=== PATIENT | male | born 1985 | race Caucasian/White ===

== ENCOUNTER 2024-07-27 10:42 | Emergency (ER) | payer MEDICAID, SELFPAY ==
--- NOTE | 2024-07-27 10:44 | EKG_ITS ---
[facility] Test Date: 2024-07-27 Pat Name: RICKY RAITA Department: Room: - Gender: Male Yam Curer: : 1985 Requested By: Shimon Eckert Order Number: [id number] Reading MD: Shimon Eckert Measurements Intervals Sikes Rate: 94 P: 24 AZ: 146 QRS: 74 QRSD: 92 T: 2 QT: 336 QTc: 421 Interpretive Statements SINUS RHYTHM Compared to ECG 02/04/2024 08:05:42 No significant changes /store/S0/[id number].pdf
--- NOTE | 2024-07-27 10:44 | XR_ITS ---
Examination: AP chest single view Technique one AP portable upright chest single view Exam date and time: July 27, 2024 1103 hours Comparison February 10, 2020 INDICATIONS: Onset chest pain today. FINDINGS: Subsegmental atelectasis left base Normal heart size No pneumonia or pulmonary edema IMPRESSION: Subsegmental atelectasis left base
--- NOTE | 2024-07-27 10:44 | XR_ITS ---
Examination: CT brain head without contrast. 2-D sagittal coronal reconstructions Date and time of exam:July 27, 2024 1129 hours INDICATIONS: Loss of consciousness episode today COMPARISON: November 06, 2021 CTDI: vol (mGy):52 DLP: (mGycm):1031 Technique: Multiple CT axial sections of the brain have been obtained, 5 mm slice thickness. Contrast has not been administered. 2-D sagittal, coronal reconstructions have been obtained Low dose protocols were performed. One or more of the following dose reduction techniques were used; automated exposure control, adjustment of the mA and/or KV according to patient size, use of iterative reconstruction technique. Findings: No significant ventricular enlargement. Intra-axial or extra-axial hemorrhage density is not seen. No mass effect or midline shift Basal cisterns are not remarkable. Fourth ventricle is midline. Cranial vault intact. Impression: Negative for acute hemorrhage, mass effect or midline shift
[2024-07-27 10:46] VITALS: PULSE 129; RESP 24; TEMP 36.8; O2SAT 96
--- NOTE | 2024-07-27 11:01 | EDNOTE_ITS ---
ED Overdose RME/HPI General Chief Complaint: Overdose Stated Complaint: OVERDOSE Time Seen by Provider: 07/27/24 10:43 Arrival date/time: 07/27/24 10:42 RME / HPI RME / HPI Narrative: 38 year old male with history of hypertension, hyperlipidemia, polysubstance use presents to the ED brought in by [facility] for overdose today. Per officer, patient was with another individual who also overdosed, requiring CPR and Narcan. Per [employer] officers, patient did not require any CPR and refused any Narcan. State he is unsteady on his feet otherwise awake, alert, answering all questions. While in the ED patient has no complaints. Admits to smoking Fentanyl and Methamphetamine. Related Data Home Medications ?Medication ?Instructions ?Recorded ?Confirmed amlodipine 5 mg tablet 5 mg PO QDAY 02/04/24 02/08/24 atorvastatin 10 mg tablet (Lipitor) 10 mg PO QDAY 02/04/24 02/08/24 losartan 50 mg tablet 50 mg PO QDAY 02/04/24 02/08/24 Previous Rx's ?Medication ?Instructions ?Recorded docusate sodium 100 mg capsule 100 mg PO BID #40 caps 02/08/24 (Colace) ibuprofen 600 mg tablet 600 mg PO Q8H PRN pain (scale 02/08/24 score 4-6) #30 tabs Allergies Allergy/AdvReac Type Severity Reaction Status Date / Time No Known Allergies Allergy Verified 02/08/24 06:38 Review of Systems Review of Systems Narrative Review of Systems: Constitutional: DENIES; Fevers Eyes: DENIES; Loss of vision Head/Ear/Nose: DENIES; Loss of hearing Throat: DENIES; Dysphagia Cardiovascular: DENIES; Chest pain, dyspnea or syncope Respiratory: DENIES; Shortness of breath Gastrointestinal: DENIES; Rectal bleeding or melena. Genitourinary: DENIES; Dysuria (painful or difficult urination) Musculoskeletal: DENIES; Arthralgia (pain in a joint),; Skin: DENIES; Rash Neurological: DENIES; Loss of function or movement Psychiatric: SEE HPI +overdose DENIES; recent major life stressor, emotional problem Endocrinology: DENIES; Weight change Hematologic/Lymphatic: DENIES; Abnormal bruising Allergic/Immunologic: DENIES; Urticaria (hives) Past Medical History Past Medical History CARDIAC: Positive Cardiac Disorders, Hypercholesterolemia, Hypertension and Varicose Veins GENITOURINARY: Positive Genitourinary Disorders and Inguinal Hernia MUSCULOSKELETAL: Positive Musculoskeletal Disorders and Fractures (Left arm 5 yrs ago) PSYCHO/SOCIAL: Positive Recreational Drug Use (fentanyl, cocaine, heroin 54 days clean) and Anxiety OTHER HISTORY: Positive Chicken Pox Family History FAMILY HISTORY: Positive Family Cardiac Disorders, Family Cancer (skin) and Family Surgery Social History SMOKING STATUS: Current every day smoker ED Exam Narrative Physical exam: Physical Exam: General: The vital signs were reviewed. Patient was escorted in by police with handcuffs and somewhat wobbly but alert enough to answer questions follow directions evidently was just smoking fentanyl. He also identified the patient in room 2 who came and overdose requiring respiratory assistance Patient was released by the police Patient initially was uncooperative did not want to stay but then agreed to stay and get the medical workup. The patient is non-toxic, in no apparent distress and appears healthy with a patent airway, no respiratory distress and has no apparent circulatory problems. Head & Scalp: Normocephalic, atraumatic. Face: Appears normal and is without lesions, deformity. Ears: Left external pinna appears normal. Right external pinna appears normal. Eyes: The sclera is anicteric. No obvious photophobia. The Left and Right Orbit/Lid/Conjunctiva appears normal without swelling, discoloration or injection. Nose: The nose is without deformity, discharge or tenderness; Throat: Appears normal. The mucous membranes are pink and moist without exudates, redness or mass seen. The tongue appears normal. Neck: The neck is supple and no apparent mass or adenopathy. Chest: The chest wall is normal in size and symmetry and has no chest wall tenderness or crepitus. The patient displays normal ventilator effort without retractions, accessory muscle use and has adequate air movement bilaterally with no wheezes and no rales. Cardiovascular: Regular rate and rhythm; No murmurs, rubs, or gallops; Gastrointestinal: The abdomen appears normal. No obvious hernias or mass. The abdomen is soft and benign, non-distended, with no pain, no guarding and no rebound tenderness. Bowel sounds are present and normal sounding. No CVA tenderness. Genitourinary: Back/Spine: Extremities/Musculoskeletal/lymphatic: The bilateral upper and lower extremities are warm. There is no evidence of arterial insufficiency. There is no evidence of venous insufficiency/edema. The patient spontaneously moves bilateral upper and lower extremities with no pain and no limitation of movement. There is no apparent, injury or trauma. Skin: The skin is warm, dry and intact. No rashes. No petechia. No purpura. No abnormal bruising. The color is appropriate with no cyanosis. Mental status/Psychiatric: Mental status is appropriate for age. The patient has no apparent delusions, visual hallucinations, no apparent audible hallucinations. The patient has no apparent suicidal thoughts/ideation and no apparent homicidal thoughts/ideation. Neurological: The patient is awake, alert, interactive, cordial, cooperative and is oriented to name and situation. The patient follows commands and answers historical question with no impairment. There is no visual disturbance apparent. The pupils are equal and reactive bilaterally with normal eye movements and no diplopia The bilateral upper and lower extremities have normal strength, normal range of motion and normal functioning. The gait, station and balance appear to be baseline with no acute change Course Quality Measures none Orders Category Date Time Status Bedside Blood Glucose NOW Care 07/27/24 10:44 Completed EKG (ED ONLY) *Do not use* NOW Care 07/27/24 10:44 Completed Miscellaneous Nursing Order NOW Care 07/27/24 10:[address] head/brain wo con Stat Exams 07/27/24 10:44 Completed EKG (ED Only) Stat Exams 07/27/24 10:44 Ordered XR chest 1V portable Stat Exams 07/27/24 10:44 Completed Alcohol, Blood Medical Stat Lab 07/27/24 11:27 Completed Ammonia Stat Lab 07/27/24 11:27 Completed B-Type Natriuretic Peptide Stat Lab 07/27/24 11:27 Completed Blood Culture (Lab) Stat Lab 07/27/24 11:20 Received CBC Stat Lab 07/27/24 11:27 Completed Comprehensive Metabolic Panel Stat Lab 07/27/24 11:27 Completed Drug Screen,Urine Stat Lab 07/27/24 12:52 Completed Lactate (Lactic Acid) Stat Lab 07/27/24 11:27 Completed Procalcitonin Stat Lab 07/27/24 11:27 Completed Prothrombin Time with INR Stat Lab 07/27/24 11:27 Completed Troponin I Stat Lab 07/27/24 11:27 Completed Type and Screen Stat Lab 07/27/24 12:29 Completed Urinalysis Stat Lab 07/27/24 12:52 Completed Urinalysis, C/S if Indicated Stat Lab 07/27/24 12:52 Completed Venous Blood Gas Stat Lab 07/27/24 11:27 Completed Sodium Chloride 0.9% 1000 ml [Ns] 1,000 ml Med 07/27/24 10:44 Discontinued IV 1,000 mls/hr Sodium Chloride 0.9% 1000 ml [Ns] 2,000 ml Med 07/27/24 10:44 Discontinued IV 150 mls/hr Vital Signs Vital signs: Vital Signs Temperature 98.3 F 07/27/24 10:46 Pulse Rate 129 H 07/27/24 10:46 Respiratory Rate 24 H 07/27/24 10:46 Pulse Oximetry (%) 96 07/27/24 10:46 Oxygen Delivery Method Room Air 07/27/24 10:46 Pulse ox is 96% on room air which is adequate. Overdose MDM Narrative MDM Narrative:: Patient comes in smoking fentanyl and was under the influence wobbly and barely able to walk with the assistance of the officer but was put into room 18 eventually and stayed alert awake and became much more cooperative after about 3040 minutes. Medical workup was fairly extensive including CT of the head which was negative chest x-ray reveals some minimal atelectasis in the left base otherwise is clear with no effusion no consolidating pneumonia normal heart. Alcohol level is negative his talk screen is positive for marijuana amphetamine and fentanyl. Urinalysis otherwise had some minimal red blood cells in it. Specific gravity is somewhat concentrated at 1027. A CMP was done which was essentially negative. Venous blood gas came back a pH is 7.38 PT/INR were normal. CBC had a white count of 9.9 hemoglobin of 15.6. Patient was observed had normal mental status changes for the last couple hours. Evidently him and his girlfriend who was in respiratory arrest and responded to Narcan or finding to did be discharged from the ER and go to the some rehab in [place] that they have arranged with her counselors. Patient data External records reviewed:: [facility] previous records (I reviewed ED visit on 11/06/2021) Clinical information provided by:: patient and law enforcement ([employer] ) Social determinants that could affect healthcare access:: substance use (Fentanyl, Methamphetamine, Marijuana ) Patient has the following chronic illnesses:: hypertension, hyperlipidemia, polysubstance use How is presenting disease/condition affected by chronic disease/condition?: exacerbated by Evaluation data The following diagnostics were reviewed and interpreted by me:: lab results, radiology exam(s) and EKG tracing(s) (Sinus rhythm, rate 94, no STEMI. ) Lab and/or radiology exams considered but not ordered:: None Interpretation Summary: Ordering Physician: Shimon Eckert MD Date of Service: 07/27/24 Procedure(s): XR chest 1V portable Accession Number(s): [id number] cc: Shimon Eckert MD; Nader Berry MD; MANNY JASON~ Examination: AP chest single view Technique one AP portable upright chest single view Exam date and time: July 27, 2024 1103 hours Comparison February 10, 2020 INDICATIONS: Onset chest pain today. FINDINGS: Subsegmental atelectasis left base Normal heart size No pneumonia or pulmonary edema IMPRESSION: Subsegmental atelectasis left base Dictated By: Nader Berry MD Signed By: <Electronically signed by Nader Berry MD in OV> 07/27/24 1137 ===== Ordering Physician: Shimon Eckert MD Date of Service: 07/27/24 Procedure(s): CT head/brain wo con Accession Number(s): [id number] cc: Shimon Eckert MD; Nader Berry MD; MANNY JASON~ Examination: CT brain head without contrast. 2-D sagittal coronal reconstructions Date and time of exam:July 27, 2024 1129 hours INDICATIONS: Loss of consciousness episode today COMPARISON: November 06, 2021 CTDI: vol (mGy):52 DLP: (mGycm):1031 Technique: Multiple CT axial sections of the brain have been obtained, 5 mm slice thickness. Contrast has not been administered. 2-D sagittal, coronal reconstructions have been obtained Low dose protocols were performed. One or more of the following dose reduction techniques were used; automated exposure control, adjustment of the mA and/or KV according to patient size, use of iterative reconstruction technique. Findings: No significant ventricular enlargement. Intra-axial or extra-axial hemorrhage density is not seen. No mass effect or midline shift Basal cisterns are not remarkable. Fourth ventricle is midline. Cranial vault intact. Impression: Negative for acute hemorrhage, mass effect or midline shift Dictated By: Nader Berry MD Signed By: <Electronically signed by Nader Berry MD in OV> 07/27/24 1147 Medications / Prescriptions Medications or Prescriptions considered but not ordered:: None Medication administrations:: Medication Administration History Discontinued Medications Sodium Chloride (Ns) 2,000 mls @ 150 mls/hr IV .[id number] ONE Stop: 07/28/24 00:03 Last Admin: 07/27/24 11:41 Dose: 150 mls/hr Documented By: SARBJIT Sodium Chloride (Ns) 1,000 mls @ 1,000 mls/hr IV .Q1H ONE Stop: 07/27/24 11:43 Last Infusion: 07/27/24 12:39 Dose: Infused Documented By: Admin: 07/27/24 11:39 Dose: 1,000 mls/hr Documented By: SARBJIT See above Consultations Consultation(s) initiated? (list below): No Diagnosis Overdose Differential Diagnosis: cocaine intoxication, drug overdose and other (Methamphetamine use, fentanyl overdose ) Most likely diagnosis given after review of the tests above:: Opioid overdose Admission Indicated Admission indicated?: not indicated Admission Request Was there a request for admission?: No Disposition Plan Disposition Plan: Discharge Discharge Attestation Discharge Attestation: The patient and all family members were given an opportunity to ask questions and understood the discharge instructions. Discharge instructions specifically effects, indications for sooner follow up or return to the emergency department, and the expected course of current diagnosis. Patient condition: Stable Discharge Plan Plan Patient Disposition: HOME (Self Care) Prescriptions/Referrals Prescriptions/Med Rec: No Action losartan 50 mg Tablet 50 mg PO QDAY atorvastatin [Lipitor] 10 mg Tablet 10 mg PO QDAY amlodipine 5 mg Tablet 5 mg PO QDAY docusate sodium [Colace] 100 mg capsule 100 mg PO BID Qty: 40 0RF ibuprofen 600 mg tablet 600 mg PO Q8H PRN (Reason: pain (scale score 4-6)) Qty: 30 0RF Referrals: Manny Jason PA-C [Primary Care Provider] - In 1 week Problem List Clinical Impression: Opioid overdose Patient/Caregiver Discharge Instructions Additional Instructions: Please stop using drugs as we discussed get help as you are planning. Return if worse in any way. I want to encourage you with your rehab. Also there are programs like [facility] available in the town if you need. Print Language: Hungarian Stand Alone Forms: Patient Portal Info Letter
[2024-07-27 11:38] LABS: Base Excess, Venous -1 (-3-3); Basophils % (Auto) 0 % (0-2.5); Eosinophils % (Auto) 0 % (0-10); Hematocrit 43.9 % (41.0-53.0); Hemoglobin 15.6 g/dL (13.5-16.0); Immature Granulocytes % (Auto) 0 % (0-0); Immature Granulocytes Auto 0.03 Thou/mm3 (0.00-0.00); Lymphocytes # (Auto) 1.5 Thou/mm3 (1.0-4.8); Lymphocytes % (Auto) 15 % (10-50); Mean Corpuscular HGB Conc 35.5 g/dl (31.0-37.0); Mean Corpuscular Hemoglobin 29.6 pg (25.0-35.0); Mean Corpuscular Volume 83 fL (80-100); Monocytes # (Auto) 0.6 Thou/mm3 (0.0-0.8); Monocytes % (Auto) 6 % (0-12); Neutrophils # (Auto) 7.7 Thou/mm3 (1.8-7.7); Neutrophils % (Auto) 78 % (37-80); Nucleated Red Blood Cell % 0 /100 WBC (0); O2 Saturation, Venous 97 % (96-97); PCO2, Venous 41 mmHg (36-56); PO2, Venous 86 mmHg (15-58); Platelet Count 271 Thou/mm3 (140-440); RDW Standard Deviation 38.9 fL (35.1-43.9); Red Blood Count 5.27 Miln/mm3 (4.50-5.90); White Blood Count 9.9 Thou/mm3 (3.8-10.6); pH, Venous 7.38 (7.33-7.66)
[2024-07-27 11:39] LABS: Lactate (Lactic Acid) 0.9 mMol/L (0.4-2.0)
[2024-07-27] MEDS: SODIUM CHLORIDE 0.9% 1000 ML 1,000 ML IV (11:39)
[2024-07-27] MEDS: SODIUM CHLORIDE 0.9% 1000 ML 2,000 ML 150 ML IV (11:41)
[2024-07-27 11:42] VITALS: BP 121/92; PULSE 105; RESP 18; TEMP 37; O2SAT 95; BMI 29.9
[2024-07-27 11:56] LABS: Prothrombin Time 11.2 Seconds (9.0-12.2)
[2024-07-27 12:02] LABS: B-Type Natriuretic Peptide < 20 pg/mL (0-100)
[2024-07-27 12:07] LABS: Ammonia < 10 uMol/L (11-32)
[2024-07-27 12:14] LABS: Alanine Aminotransferase 9 U/L (10-49); Albumin, Serum 4.8 gm/dL (3.5-5.0); Albumin/Globulin Ratio 1.5 (1.2-2.2); Alcohol, Blood Medical < 3.0 mg/dL (0-10.0); Alkaline Phosphatase 63 U/L (46-116); Anion Gap 10 (7-16); Aspartate Amino Transferase 10 U/L (0-34); BUN/Creatinine Ratio 16 Ratio (12-20); Bilirubin,Total 0.5 mg/dL (0.3-1.2); Blood Urea Nitrogen 19 mg/dL (9-23); Carbon Dioxide 22.7 mMol/L (20.0-31.0); Chloride 103 mMol/L (98-107); Creatinine (Component) 1.2 mg/dL (0.6-1.3); Estimated Creatinine Clearance 83.7 mL/min (>60); Globulin 3.1 gm/dL (2.3-3.5); Glucose 111 mg/dL (74-106); Osmolality,Calculated 275 (275-295); Potassium 3.9 mMol/L (3.4-5.1); Sodium 136 mMol/L (136-145); Total Protein 7.9 gm/dL (5.7-8.2); Troponin I < 0.002 ng/mL (0.0-0.045); eGFR > 60 See Note
[2024-07-27 12:38] VITALS: BP 127/84; PULSE 108; RESP 18; TEMP 36.7; O2SAT 97
[2024-07-27 13:00] LABS: Collection Type, Urine Clean Catch
[2024-07-27 13:10] LABS: Bilirubin,Urine Negative (Negative); Blood,Urine 1+ (Negative); Clarity,Urine Clear (Clear/Hazy); Color,Urine Lt-Yellow (Lt Yel-Yel); Culture Indicated,Urine Not Indicated; Glucose, Urine Negative (Negative); Hyaline Casts,Urine < 1 /hpf (0-1); Ketones,Urine Negative (Negative); Leukocyte Esterase,Urine Negative (Negative); Nitrite,Urine Negative (Negative); Protein,Urine 1+ (Neg - Trace); RBC,Urine 10 /hpf (0-3); Specific Gravity,Urine 1.027 (1.001-1.035); Squamous Epithelial Cell,Urine < 1 /hpf (0-5); Urobilinogen,Urine Negative mg/dL (0.0-1.0); WBC,Urine 2 /hpf (0-5)
[2024-07-27 13:14] LABS: Amphetamine/Methamp Scrn,U Positive (Negative); Barbiturate Screen,Urine Negative (Negative); Benzodiazepines Screen,Urine Negative (Negative); Benzoylecgonine Screen, Ur Negative (Negative); Opiate Screen,Urine Negative (Negative); THC Screen,Urine Positive (Negative)
[2024-07-27 14:39] LABS: Fentanyl Screen,Urine Positive (Negative)
--- NOTE | 2024-07-27 15:40 | PC.NURSE ---
PT DENIES BEING SUICIDAL. PT STATES IT Was an accidental overdose as he thought he was smoking meth. pt alert and oriented gcs 15
== END 2024-07-27 16:41 | disposition home or self-care (01) ==
PROVIDERS: Emergency Provider Emergency Medicine; PCP Physician Assistant
DX: T40.2X1A Poisoning by other opioids, accidental (unintentional), initial encounter (principal); J98.11 Atelectasis; I10 Essential (primary) hypertension; F17.200 Nicotine dependence, unspecified, uncomplicated
CPT/HCPCS: 36415; 70450; 71045; 80053; 80307; 80320; 81001; 82140; 82803; 83605; 83880; 84145; 84484; 85025; 85610; 86850; 86900; 86901; 87040; 93005; 96360; 99284; J7030; G0480

== ENCOUNTER 2025-03-06 13:40 | Inpatient (IN) | payer MEDICAID, SELFPAY ==
[2025-03-06 13:41] VITALS: BMI 28.5
[2025-03-06 13:56] VITALS: BP 155/96; PULSE 99; RESP 18; TEMP 37.4; O2SAT 97
--- NOTE | 2025-03-06 13:56 | XR_ITS ---
Examination: Humerus 2 views left Technique: Humerus, AP lateral 2 views Date and time of exam: 01/04/2025 1407 hours INDICATIONS: Puncture injury to the arm yesterday, arm pain. FINDINGS: No fracture. No shoulder dislocation. No opaque foreign body. IMPRESSION: No opaque foreign body
--- NOTE | 2025-03-06 13:56 | XR_ITS ---
Examination: Duplex scan of the upper extremity, unilateral left Date and time of exam: March 06, 2025 1412 hours INDICATIONS: Left arm swelling and pain post needle injury 2 days ago Technique: Duplex scan of the extremity veins using B-mode/grayscale imaging and Doppler spectral analysis and color flow Attention is directed to internal echogenicity, compression and augmentation involving these veins, color flow assessment, spectral analysis Findings: Major deep venous structures in the extremity demonstrate normal course and caliber. There is no evidence of deep vein thrombosis. Normal color flow and spectral analysis Impression: Negative for DVT.. Partially cystic complex mass in the soft tissue left upper arm, 7.2 x 3.2 x 3.4 cm, consider abscess
--- NOTE | 2025-03-06 13:56 | XR_ITS ---
Examination: Left elbow 3 views Technique: Elbow AP, oblique, lateral 3 views Exam date and time: March 06, 2025 1402 hours INDICATIONS: Puncture injury to the elbow yesterday, elbow pain. FINDINGS: Air in the soft tissue adjacent to the distal humerus on the medial side No fracture No opaque foreign body IMPRESSION: No opaque foreign bodies.
--- NOTE | 2025-03-06 13:57 | EDRME_ITS ---
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
[2025-03-06 14:57] LABS: Lactate (Lactic Acid) 0.9 mMol/L (0.4-2.0)
[2025-03-06 15:08] LABS: Basophils # (Auto) 0.0 Thou/mm3 (0.0-0.2); Basophils % (Auto) 0 % (0-2.5); Eosinophils # (Auto) 0.1 Thou/mm3 (0.0-0.5); Eosinophils % (Auto) 1 % (0-10); Hematocrit 41.0 % (41.0-53.0); Hemoglobin 14.2 g/dL (13.5-16.0); Immature Granulocytes Auto 0.08 Thou/mm3 (0.00-0.00); Lymphocytes # (Auto) 1.7 Thou/mm3 (1.0-4.8); Lymphocytes % (Auto) 10 % (10-50); Mean Corpuscular HGB Conc 34.6 g/dl (31.0-37.0); Mean Corpuscular Hemoglobin 30.3 pg (25.0-35.0); Mean Corpuscular Volume 87 fL (80-100); Monocytes # (Auto) 1.5 Thou/mm3 (0.0-0.8); Monocytes % (Auto) 9 % (0-12); Neutrophils # (Auto) 13.3 Thou/mm3 (1.8-7.7); Neutrophils % (Auto) 80 % (37-80); Nucleated Red Blood Cell # 0.00 Thou/mm3 (0.00-0.00); Nucleated Red Blood Cell % 0 /100 WBC (0); Platelet Count 387 Thou/mm3 (140-440); RDW Standard Deviation 40.9 fL (35.1-43.9); Red Blood Count 4.69 Miln/mm3 (4.50-5.90); White Blood Count 16.7 Thou/mm3 (3.8-10.6)
[2025-03-06 15:17] LABS: INR 1.1 (0.9-1.3); Partial Thromboplastin Time 35.5 Seconds (22.0-36.0); Prothrombin Time 11.9 Seconds (9.0-12.2)
[2025-03-06 15:27] LABS: Alanine Aminotransferase 105 U/L (10-49); Albumin, Serum 4.0 gm/dL (3.5-5.0); Albumin/Globulin Ratio 1.3 (1.2-2.2); Alkaline Phosphatase 109 U/L (46-116); Anion Gap 8 (7-16); Aspartate Amino Transferase 62 U/L (0-34); BUN/Creatinine Ratio 7 Ratio (12-20); Bilirubin,Total 1.5 mg/dL (0.3-1.2); Blood Urea Nitrogen 6 mg/dL (9-23); Calcium 8.9 mg/dL (8.3-10.6); Calcium (Corrected) 8.9 mg/dL (8.5-10.1); Carbon Dioxide 28.2 mMol/L (20.0-31.0); Chloride 95 mMol/L (98-107); Creatinine (Component) 0.9 mg/dL (0.6-1.3); Estimated Creatinine Clearance 104.3 mL/min (>60); Globulin 3.2 gm/dL (2.3-3.5); Glucose 96 mg/dL (74-106); Osmolality,Calculated 260 (275-295); Potassium 4.3 mMol/L (3.4-5.1); Procalcitonin 0.26 ng/ml (0.0-0.49); Sodium 131 mMol/L (136-145); Total Protein 7.2 gm/dL (5.7-8.2); eGFR > 60 See Note
[2025-03-06 15:33] LABS: C-Reactive Protein 18.5 mg/dL (0.0-0.9)
[2025-03-06 15:48] LABS: Sed Rate (ESR) 43 mm/hr (0-15)
[2025-03-06 19:25] LABS: Amphetamine/Methamp Scrn,U Positive (Negative); Barbiturate Screen,Urine Negative (Negative); Benzodiazepines Screen,Urine Negative (Negative); Benzoylecgonine Screen, Ur Negative (Negative); Fentanyl Screen,Urine Positive (Negative); Opiate Screen,Urine Positive (Negative); THC Screen,Urine Positive (Negative)
[2025-03-06 19:36] VITALS: BP 151/94; PULSE 95; RESP 16; TEMP 37.2; O2SAT 99
--- NOTE | 2025-03-06 19:43 | XR_ITS ---
Examination: CT left humerus with intravenous contrast, 2-D sagittal reconstructions. 2-D coronal reconstructions. 3-D reconstructions. Date and time of exam:March 06, 2025 at 2033 hours INDICATIONS: Drug abuse history with edema and erythema involving the arm CTDI: vol (mGy):19.9 DLP: (mGycm):1012 Technique: Multiple 1.25 mm axial sections of the left humerus post intravenous administration 60 cc Isovue 370 have been obtained. 2-D sagittal and coronal reconstructions have been obtained. 3-D reconstructions have been obtained. Low dose protocols were performed. One or more of the following dose reduction techniques were used; automated exposure control, adjustment of the mA and/or KV according to patient size, use of iterative reconstruction technique. Findings: Low density mass consistent with abscess in the deltoid muscle, 3.1 x 2.2 x 8.4 cm Negative for osteomyelitis Diffuse edema surrounding the upper arm and forearm No opaque foreign body IMPRESSION: Abscess in the deltoid muscle, 3.1 x 2.2 x 8.4 cm, recommend surgical consultation
--- NOTE | 2025-03-06 19:45 | PD.EDUPEX ---
Upper Extremity Injury RME/HPI General Chief Complaint: Extremity Injury, Upper Stated Complaint: L) ARM SWOLLEN FROM POKE W/ SYRINGE Time Seen by Provider: 03/06/25 16:33 Arrival date/time: 03/06/25 13:40 Limitations: no limitations RME / HPI RME / HPI narrative: 39-year-old male with a history of polysubstance abuse is here today with left arm swelling and pain for the last 2 to 3 days. He states he injected heroin or fentanyl into his upper arm. Since then he has had redness, swelling, and pain. Denies any chest pain or shortness of breath. No fevers or chills. No abdominal pain, nausea, vomiting. He has no distal paresthesias. He states he has been using heroin, fentanyl, and methamphetamine. States that he has a period of sobriety but relapsed recently. Denies any alcohol abuse. Denies any drug allergies. He states he has a history of hypertension but takes no medication for this currently. He states he has no current PCP. He has no other acute complaints or concerns. Related Data Home Medications ?Medication ?Instructions ?Recorded ?Confirmed amlodipine 5 mg tablet 5 mg PO QDAY 02/04/24 03/15/25 losartan 50 mg tablet 50 mg PO QDAY 02/04/24 03/15/25 methadone 10 mg/mL oral concentrate 60 mg PO QDAY 03/07/25 03/15/25 Previous Rx's ?Medication ?Instructions ?Recorded nicotine 21 mg/24 hr daily 21 mg topical QDAY 28 days #28 ea 03/09/25 transdermal patch Allergies Allergy/AdvReac Type Severity Reaction Status Date / Time No Known Allergies Allergy Verified 03/15/25 10:21 Review of Systems Review of Systems Systems Reviewed: All systems reviewed, normal except as documented ED Exam General Limitations: Present no limitations General appearance: Present alert and in no apparent distress Head Head exam: Present atraumatic Eye Eye exam: Present normal appearance, PERRL and EOMI ENT ENT exam: Present normal exam, normal oropharynx and mucous membranes moist Neck Neck exam: Present normal inspection, full ROM and trachea midline Chest Chest inspection: Present normal inspection and symmetric chest wall rise Respiratory Respiratory exam: Present normal lung sounds bilaterally Cardiovascular Cardiovascular exam: Present regular rate, normal rhythm and normal heart sounds Abdominal Exam Abdominal exam: Present soft and normal bowel sounds Extremities Exam Extremities exam: Present normal inspection, full ROM and other ( Patient has full range of motion of the left elbow including pronation supination.) Back Exam Back exam: Present normal inspection and full ROM Neurological Exam Neurological exam: Present alert and oriented X3 Skin Skin exam: Present warm, dry, normal color and other (There is induration, warmth, entire the entire left deltoid, this extends to the superior portion of the shoulder and down to the forearm. ) Course Course Course Narrative: Dr Contreras with orthopedics was paged at [phone]. Spoke with the resident hospitalist at 22:35 PM. Discussed possible admission. They are wanting orthopedics consultation involvement prior to excepting the patient. Dr Contreras was paged at 22:[address] Contreras with orthopedics was contacted and will come down to the ER and evaluate the patient. Dr Contreras with orthopedics arrived in the emergency room, had a [id number] evaluation with the patient. He recommends transfer to a larger facility with higher level care for further intervention. Will provided dose of Zosyn additionally here. Case signed out to Dr. Cunningham at shift change. Quality Measures none Orders Category Date Time Status CT Screening NOW Care 03/06/25 19:44 Completed Consent [Obtain Written Consent For:] .ONCE Care 03/07/25 10:[address] humerus LT w con Stat Exams 03/06/25 19:43 Completed US venous doppler UE LT Stat Exams 03/06/25 13:56 Completed XR elbow comp LT min 3V Stat Exams 03/06/25 13:56 Completed XR humerus LT MIN 2V Stat Exams 03/06/25 13:56 Completed Blood Culture (Lab) Stat Lab 03/06/25 14:47 Completed CBC Stat Lab 03/06/25 14:47 Completed CMP [Comprehensive Metabolic Panel] Stat Lab 03/06/25 14:47 Completed CRP [C-Reactive Protein] Stat Lab 03/06/25 14:47 Completed Drug Screen,Urine Stat Lab 03/06/25 18:45 Completed ESR [Sed Rate (ESR)] Stat Lab 03/06/25 14:47 Completed Lactic Acid [Lactate (Lactic Acid)] Stat Lab 03/06/25 14:47 Completed PT [Prothrombin Time with INR] Stat Lab 03/06/25 14:47 Completed PTT [Partial Thromboplastin Time] Stat Lab 03/06/25 14:47 Completed Procalcitonin Stat Lab 03/06/25 14:47 Completed Wound Culture and Gram Stain Stat Lab 03/06/25 21:39 Stop Req Acetaminophen Tab [Tylenol Tab] Med 03/07/25 04:15 Discontinued 650 mg PO X1 ONE Doxycycline Inj [Vibramycin Inj] 100 mg Med 03/06/25 19:43 Discontinued Sodium Chloride 0.9% (Pop) [NS 0.9% mini bag] 100 ml IV X1 HYDROmorphone INJ [Dilaudid Inj] Med 03/06/25 23:07 Discontinued 1 mg IVP X1 ONE HYDROmorphone INJ [Dilaudid Inj] Med 03/07/25 04:03 Discontinued 1 mg IVP X1 ONE Ketorolac Inj [Toradol Inj] Med 03/07/25 10:14 Discontinued 15 mg IVP Q6H PRN Lidocaine 1% Pf 30 ml [Xylocaine 1% Pf 30 ml] Med 03/06/25 21:38 Discontinued 30 ml INFL X1 ONE Morphine Inj Med 03/06/25 20:18 Discontinued 4 mg IVP X1 ONE Morphine Inj Med 03/06/25 21:38 Discontinued 4 mg IVP X1 ONE Piper/Tazo 3.375 gm Premix [Zosyn] Med 03/07/25 04:28 Discontinued 3.375 gm in 50 ml IV X1 Piper/Tazo Inj [Zosyn Inj] 4.5 gm Med 03/06/25 22:58 Discontinued Sodium Chloride 0.9% (Pop) [NS 0.9% mini bag] 100 ml IV X1 Sodium Chloride 0.9% 1000 ml [Ns] 1,000 ml Med 03/06/25 20:50 Discontinued IV 999 mls/hr TET,DIP/PERT AC (Adult)-Tdap [Boostrix Adult (Tdap) Med 03/06/25 19:43 Discontinued Vacc] 0.5 ml IMI .ONCE ONE Vancomycin Inj 1,000 mg Med 03/07/25 04:50 Discontinued Sodium Chloride 0.9% 250 ml [Ns] 250 ml IV X1 Vital Signs Vital signs: Vital Signs Temperature 99.4 F 03/06/25 13:56 Pulse Rate 99 03/06/25 13:56 Respiratory Rate 18 03/06/25 13:56 Blood Pressure 155/96 H 03/06/25 13:56 Pulse Oximetry (%) 97 03/06/25 13:56 Oxygen Delivery Method Room Air 03/06/25 13:56 Extremity Injury MDM Narrative MDM Narrative:: 39-year-old male with a history of polysubstance abuse is here today with left arm swelling and pain for the last 2 to 3 days. He states he injected heroin or fentanyl into his upper arm. Since then he has had redness, swelling, and pain. Denies any chest pain or shortness of breath. No fevers or chills. No abdominal pain, nausea, vomiting. He has no distal paresthesias. He states he has been using heroin, fentanyl, and methamphetamine. States that he has a period of sobriety but relapsed recently. Denies any alcohol abuse. Denies any drug allergies. He states he has a history of hypertension but takes no medication for this currently. He states he has no current PCP. He has no other acute complaints or concerns. On exam, patient is nontoxic appearing but he is ill-appearing. Vital signs are stable. He has +2 left radial pulses. He has full range of motion of the left arm. Patient has full range of motion of the elbow including pronation supination. Patient has a leukocytosis of 16.7 thousand, hemoglobin hematocrit are unremarkable. ESR is 43, sodium is 131, creatinine 0.9, T. bili is 1.5, AST is 62, ALT is 105, CRP is 18.5, urine drug screen is positive for opiates, fentanyl, and amphetamines. Marijuana is also positive. Advanced imaging was obtained including CT of the upper arm which reveals abscess, see CT report for further info. Patient received a dose of doxycycline, 100 mg IV here in addition to Zosyn. He was given a 1L bolus of normal saline for his hyponatremia although he remained normotensive and not tachycardic. Patient had no fever throughout the ER course. Case discussed with Dr. Schrader, orthopedic surgeon who believes patient needs be transferred for another facility for higher level care. He did see the patient in the ER. Transfer was requested. Case discussed with nightshift attending ER physician, Dr Cunningham who will be available to assist with the transfer or any interventions as needed.. Patient data External records reviewed:: None Clinical information provided by:: patient and spouse Social determinants that could affect healthcare access:: substance use Patient has the following chronic illnesses:: Polysubstance abuse How is presenting disease/condition affected by chronic disease/condition?: exacerbated by Evaluation data The following diagnostics were reviewed and interpreted by me:: lab results (Leukocytosis, elevated liver function test elevated inflammatory markers) and radiology exam(s) (CT of the left upper arm reveals left deltoid abscess CT) Lab and/or radiology exams considered but not ordered:: n/a Interpretation Summary: Polysubstance abuse, abscess left arm Medications / Prescriptions Medications or Prescriptions considered but not ordered:: n/a Medication administrations:: Medication Administration History Discontinued Medications Acetaminophen (Acetaminophen 325 Mg Tablet) 650 mg PO X1 ONE Stop: 03/07/25 04:16 Last Admin: 03/07/25 04:58 Dose: 650 mg Documented By: LUIGI Acetaminophen (Acetaminophen 325 Mg Tablet) 650 mg PO Q6H PRN PRN Reason: PAIN 1-3 OR FEVER > 101 Stop: 04/06/25 13:53 Hydrocodone Bitart/Acetaminophen (Hydrocodone/Apap 7.5/325 Tablet) 1 tab PO Q6HR PRN PRN Reason: PAIN SCALE 4-6 (Moderate Stop: 03/12/25 11:06 Last Admin: 03/09/25 00:16 Dose: 1 tab Documented By: Admin: 03/08/25 14:47 Dose: 1 tab Documented By: Admin: 03/08/25 00:10 Dose: 1 tab Documented By: NATALIE Amlodipine Besylate (Amlodipine Besylate 5 Mg Tablet) 5 mg PO QDAY THIERRY Stop: 04/07/25 08:59 Last Admin: 03/09/25 08:36 Dose: 5 mg Documented By: Admin: 03/08/25 09:11 Dose: 5 mg Documented By: KLARISSA Diazepam (Diazepam Inj 5 Mg/Ml Vial 2 Ml) 1 mg IVP Q4HR PRN PRN Reason: CIWA 2-7 Diazepam (Diazepam Inj 5 Mg/Ml Vial 2 Ml) 2 mg IVP Q4HR PRN PRN Reason: CIWA SCORE 8-13 Stop: 03/13/25 17:41 Last Admin: 03/08/25 18:50 Dose: 2 mg Documented By: SELAM Diazepam (Diazepam Inj 5 Mg/Ml Vial 2 Ml) 3 mg IVP Q4HR PRN PRN Reason: CIWA SCORE 14-19 Stop: 03/13/25 17:46 Diphtheria/Tetanus/Acell Pertussis (Diphth,Pertuss(Acell),Tet Vac 0.5 Ml Syr- Adult) 0.5 ml IMi .ONCE ONE Stop: 03/06/25 19:44 Last Admin: 03/06/25 20:14 Dose: 0.5 ml Documented By: LUIGI Famotidine (Famotidine Inj 10 Mg/Ml Vial 2 Ml) 20 mg IVP Q12HR THIERRY Stop: 04/06/25 20:59 Last Admin: 03/09/25 08:39 Dose: 20 mg Documented By: Admin: 03/08/25 21:02 Dose: 20 mg Documented By: Admin: 03/08/25 09:10 Dose: 20 mg Documented By: [email or web address] Admin: 03/07/25 22:01 Dose: 20 mg Documented By: NATALIE Fentanyl Citrate (Fentanyl Cit Inj 50 Mcg/Ml Amp 2ml) 25 mcg IVP Q5M PRN PRN Reason: PAIN SCALE 1-3 (mild Stop: 03/07/25 21:30 Fentanyl Citrate (Fentanyl Cit Inj 50 Mcg/Ml Amp 2ml) Confirm Administered Dose 100 mcg .ROUTE .STK-MED ONE Stop: 03/07/25 19:37 Hydromorphone HCl (Hydromorphone Inj 2 Mg/Ml Vial) 1 mg IVP X1 ONE Stop: 03/06/25 23:08 Last Admin: 03/06/25 23:23 Dose: 1 mg Documented By: AMIRAH Hydromorphone HCl (Hydromorphone Inj 2 Mg/Ml Vial) 1 mg IVP X1 ONE Stop: 03/07/25 04:04 Last Admin: 03/07/25 04:13 Dose: 1 mg Documented By: LUIGI Hydromorphone HCl (Hydromorphone Inj 2 Mg/Ml Vial) 0.4 mg IVP Q5M PRN PRN Reason: PAIN SCALE 7-10 (Severe Stop: 03/07/25 21:30 Doxycycline Hyclate 100 mg/ (Sodium Chloride) 100 mls @ 100 mls/hr IV X1 ONE Stop: 03/06/25 20:42 Last Infusion: 03/06/25 21:20 Dose: Infused Documented By: Admin: 03/06/25 20:14 Dose: 100 mls/hr Documented By: LUIGI Sodium Chloride (Ns) 1,000 mls @ 999 mls/hr IV .Q1H1M ONE Stop: 03/06/25 21:50 Last Infusion: 03/06/25 23:26 Dose: Infused Documented By: Admin: 03/06/25 21:06 Dose: 999 mls/hr Documented By: CB Piperacillin Sod/Tazobactam (Sod 4.5 gm/ Sodium Chloride) 100 mls @ 200 mls/hr IV X1 ONE Stop: 03/06/25 23:27 Last Infusion: 03/06/25 23:55 Dose: Infused Documented By: Admin: 03/06/25 23:23 Dose: 200 mls/hr Documented By: CB Piperacillin/Tazobactam/Dextrose (Zosyn) 3.375 gm in 50 mls @ 100 mls/hr IV X1 ONE Stop: 03/07/25 04:57 Last Infusion: 03/07/25 05:29 Dose: Infused Documented By: Admin: 03/07/25 04:56 Dose: 100 mls/hr Documented By: LUIGI Vancomycin HCl 1,000 mg/ (Sodium Chloride) 250 mls @ 150 mls/hr IV X1 ONE Stop: 03/07/25 06:29 Last Infusion: 03/07/25 07:24 Dose: Infused Documented By: Admin: 03/07/25 05:43 Dose: 150 mls/hr Documented By: LUIGI Piperacillin/Tazobactam/Dextrose (Zosyn) 3.375 gm in 50 mls @ 12.5 mls/hr IV Q8HR THIERRY; Protocol Stop: 03/14/25 13:59 Last Admin: 03/09/25 05:40 Dose: 12.5 mls/hr Documented By: Infusion: 03/09/25 01:04 Dose: Infused Documented By: Admin: 03/08/25 21:04 Dose: 12.5 mls/hr Documented By: Infusion: 03/08/25 18:33 Dose: Infused Documented By: Admin: 03/08/25 14:33 Dose: 12.5 mls/hr Documented By: [email or web address] Infusion: 03/08/25 09:09 Dose: Infused Documented By: [email or web address] Admin: 03/08/25 05:09 Dose: 12.5 mls/hr Documented By: Infusion: 03/08/25 02:34 Dose: Infused Documented By: Admin: 03/07/25 22:34 Dose: 12.5 mls/hr Documented By: Infusion: 03/07/25 18:08 Dose: Infused Documented By: Admin: 03/07/25 14:24 Dose: 12.5 mls/hr Documented By: CORNELL Vancomycin HCl (Vancomycin/Water 1gm Ivpb) 200 mls @ 120 mls/hr IV BID@1000,2200 THIERRY Stop: 03/15/25 09:59 Vancomycin HCl (Vancomycin/Water 1gm Ivpb) 200 mls @ 120 mls/hr IV X1 ONE Stop: 03/07/25 23:39 Last Admin: 03/07/25 22:31 Dose: Not Given Documented By: NATALIE Non-Admin Reason: Medication Not Available Magnesium Sulfate/Dextrose (Magnesium Sulfate Ivpb) 1 gm in 100 mls @ 100 mls/hr IV X1 ONE Stop: 03/08/25 09:07 Last Admin: 03/08/25 09:11 Dose: 100 mls/hr Documented By: KLARISSA Vancomycin HCl (Vancomycin/Water 1250 Mg Ivpb) 250 mls @ 120 mls/hr IV BID@1000,2200 THIERRY; Protocol Stop: 03/15/25 09:59 Last Admin: 03/09/25 10:00 Dose: Not Given Documented By: BRET Non-Admin Reason: Discontinued Admin: 03/08/25 21:06 Dose: 120 mls/hr Documented By: Infusion: 03/08/25 12:22 Dose: Infused Documented By: Admin: 03/08/25 10:17 Dose: 120 mls/hr Documented By: KLARISSA Vancomycin HCl (Vancomycin/Water 1gm Ivpb) 200 mls @ 120 mls/hr IV Q8HR THIERRY; Protocol Stop: 03/16/25 10:14 Last Admin: 03/09/25 10:16 Dose: 120 mls/hr Documented By: BRET Ketorolac Tromethamine (Ketorolac Inj 30 Mg/Ml Vial) 15 mg IVP Q6H PRN PRN Reason: PAIN SCALE 4-6 (Moderate Stop: 03/12/25 10:13 Last Admin: 03/09/25 08:38 Dose: 15 mg Documented By: Admin: 03/09/25 02:59 Dose: 15 mg Documented By: Admin: 03/08/25 18:16 Dose: 15 mg Documented By: Admin: 03/08/25 12:17 Dose: 15 mg Documented By: Admin: 03/07/25 17:07 Dose: 15 mg Documented By: Admin: 03/07/25 10:21 Dose: 15 mg Documented By: KRISTYN Ketorolac Tromethamine (Ketorolac Inj 30 Mg/Ml Vial) 15 mg IVP Q6H PRN PRN Reason: PAIN SCALE 4-6 (Moderate Stop: 03/12/25 10:13 Lidocaine HCl (Lidocaine Inj Pf 1% 30 Ml Vial) 30 ml INFL X1 ONE Stop: 03/06/25 21:39 Last Admin: 03/06/25 22:20 Dose: Not Given Documented By: LUIGI Non-Admin Reason: Cancelled by Provider Losartan Potassium (Losartan Potassium 25 Mg Tablet) 50 mg PO QDAY [facility] Stop: 04/07/25 08:59 Last Admin: 03/09/25 08:37 Dose: 50 mg Documented By: Admin: 03/08/25 09:09 Dose: 50 mg Documented By: KLARISSA Methadone HCl (Methadone Hcl 10 Mg Tablet) 60 mg PO QDAY [facility]; Protocol Stop: 04/07/25 08:59 Last Admin: 03/09/25 08:37 Dose: 60 mg Documented By: Admin: 03/08/25 09:09 Dose: 60 mg Documented By: KLARISSA Midazolam HCl (Midazolam Inj 1 Mg/Ml Vial 2 Ml) Confirm Administered Dose 2 mg .ROUTE .STK-MED ONE Stop: 03/07/25 19:36 Morphine Sulfate (Morphine Sulf Inj 10 Mg/Ml Vial) 4 mg IVP X1 ONE Stop: 03/06/25 20:19 Last Admin: 03/06/25 20:54 Dose: 4 mg Documented By: LUIGI Morphine Sulfate (Morphine Sulf Inj 10 Mg/Ml Vial) 4 mg IVP X1 ONE Stop: 03/06/25 21:39 Last Admin: 03/06/25 22:19 Dose: 4 mg Documented By: LUIGI Morphine Sulfate (Morphine Sulf Inj 10 Mg/Ml Vial) 4 mg IVP Q4H PRN PRN Reason: PAIN SCALE 7-10 (Severe Last Admin: 03/08/25 13:10 Dose: 4 mg Documented By: Admin: 03/08/25 04:50 Dose: 4 mg Documented By: Admin: 03/07/25 14:59 Dose: 4 mg Documented By: RICKY Morphine Sulfate (Morphine Sulf Inj 10 Mg/Ml Vial) 3 mg IVP Q5M PRN PRN Reason: PAIN SCALE 4-6 (Moderate Stop: 03/07/25 21:30 Mupirocin (Mupirocin Oint 2% 15 Gm Tube) 0 gm TOP TID THIERRY Stop: 03/16/25 13:59 Nicotine (Nicotine Patch 21 Mg/24 Hr Patch.Td24) 21 mg TOP QDAY THIERRY Stop: 04/07/25 12:29 Last Admin: 03/09/25 08:47 Dose: 21 mg Documented By: Admin: 03/08/25 12:33 Dose: 21 mg Documented By: SELAM Nicotine (Nicotine Patch 14 Mg/24 Hr Patch.Td24) 14 mg TOP X1 ONE Stop: 03/08/25 19:25 Last Admin: 03/08/25 19:33 Dose: 14 mg Documented By: NATALIE Ondansetron HCl (Ondansetron Inj 2 Mg/Ml Inj 2 Ml) 4 mg IVP Q6H PRN; Protocol PRN Reason: NAUSEA OR VOMITING Stop: 04/06/25 13:53 Ondansetron HCl (Ondansetron Inj 2 Mg/Ml Inj 2 Ml) 4 mg IVP X1 ONE Stop: 03/07/25 19:31 Pharmacy Consult (Vancomycin Pharmacy To Dose 1 Each Each) 1 each IV QDAY PRN PRN Reason: CONSULT Stop: 04/06/25 11:14 Propofol (Propofol Inj 10 Mg/Ml Vial 20 Ml) Confirm Administered Dose 200 mg IV .STK-MED ONE Stop: 03/07/25 19:36 See above Consultations Consultation(s) initiated? (list below): No Diagnosis Upper Extremity Injury Differential Diagnosis: other (Cellulitis, myelitis, fasciitis, abscess) Most likely diagnosis given after review of the tests above:: Abscess, polysubstance abuse Admission Indicated Admission indicated?: indicated Admission Request Was there a request for admission?: No Disposition Plan Disposition Plan: Transfer Discharge Plan Plan Patient Disposition: Admit Acute Care w/in Hospital Patient condition on transfer: Stable Problem List Clinical Impression: Left arm cellulitis, Abscess of deltoid region Impression comment: Left deltoid Patient/Caregiver Discharge Instructions Discharge Activity: activity as tolerated
--- NOTE | 2025-03-06 19:50 | PC.NURSE ---
PT INTO THE ER WITH C/O REDNESS, SWELLING TO LEFT ARM. PER PT HE INJECTED HEROIN INTO HIS MUSCLE, APPROX 3 DAYS AGO. PT STATES ENDORSING PAIN, 05/18. CHARLIE ANY FEVERS, SOB. OR CHILLS. PT A/OX3 GCS 15. PT PLACED ON VITAL MONITORING.CALL LIGHT WITHIN REACH. PT CARE ONGOING.
[2025-03-06 20:00] VITALS: BP 152/87; O2SAT 100
[2025-03-06] MEDS: DIPHTH,PERTUSS(ACELL),TET VAC 0.5 ML SYR- ADULT IMi (20:14)
[2025-03-06] MEDS: DOXYCYCLINE INJ 100 MG in SODIUM CHLORIDE 0.9% (POP) 100 ML IV (20:14)
[2025-03-06] MEDS: MORPHINE SULF INJ 10 MG/ML VIAL 4 MG IVP ×2 (20:54→22:19)
[2025-03-06 21:00] VITALS: BP 159/90; PULSE 77; RESP 18; TEMP 37.3; O2SAT 98
[2025-03-06] MEDS: SODIUM CHLORIDE 0.9% 1000 ML 1,000 ML 999 ML IV (21:06)
[2025-03-06 22:52] VITALS: BP 167/95; PULSE 88; RESP 18; TEMP 37.7; O2SAT 98
--- NOTE | 2025-03-06 23:20 | PD.ORTHCON ---
HPI Consult details Reason for consultation narrative: Pain left arm History of present illness: Patient is a 39-year-old who injected heroin into his left shoulder 03-03. He developed pruritus on Wednesday. Severe pain left shoulder starting Wednesday afternoon and was unable to sleep Wednesday night Wednesday. Presented to the emergency room early afternoon today 729. Called to see patient 2200 tonight. General surgery called and they said it was about of their scope of practice. Because of the late hour I did not call the general surgeon. I talked to ER staff. Patient complaining of severe pain. Past Medical History Past Medical History NEUROLOGIC: Negative Neurological Disorders or Seizures CARDIAC: Positive Hypercholesterolemia, Hypertension and Varicose Veins; Negative Cardiac Disorders or Congestive Heart Failure RESPIRATORY: Negative Chronic Obstructive Pulmonary Disease (COPD) or Asthma GASTROINTESTINAL: Negative Gastrointestinal Disorders or Hepatitis GENITOURINARY: Positive Genitourinary Disorders and Inguinal Hernia; Negative Renal Disease MUSCULOSKELETAL: Positive Musculoskeletal Disorders and Fractures ENDOCRINE: Negative Endocrine Disorders, Diabetes Mellitus Type 1 or Diabetes Mellitus Type 2 HEMATOLOGIC: Negative Blood Disorders or Sickle Cell Disease PSYCHO/SOCIAL: Positive Recreational Drug Use and Anxiety OTHER HISTORY: Positive Chicken Pox; Negative Hospitalization, Autoimmune Disease, Shingles, Blood Transfusions, Blood Transfusion Reaction, Anesthesia Reactions or Cancer Family History FAMILY HISTORY: Positive Family Cardiac Disorders, Family Cancer and Family Surgery; Negative Family Psychiatric Problems, Family Respiratory Disorders, Family Gastrointestinal Problems or Family Anesthesia Reaction Social History SMOKING STATUS: Current some day smoker Meds Home Medications and Allergies Home Medications ?Medication ?Instructions ?Recorded ?Confirmed ?Type amlodipine 5 mg tablet 5 mg PO QDAY 02/04/24 02/08/24 History atorvastatin 10 mg tablet (Lipitor) 10 mg PO QDAY 02/04/24 02/08/24 History losartan 50 mg tablet 50 mg PO QDAY 02/04/24 02/08/24 History Allergies Allergy/AdvReac Type Severity Reaction Status Date / Time No Known Allergies Allergy Verified 03/06/25 13:45 Exam Vital Signs Temp Pulse Resp BP Pulse Ox O2 Del Method 99.8 F 88 18 167/95 H 98 Room Air 03/06/25 22:52 03/06/25 22:52 03/06/25 22:52 03/06/25 22:52 03/06/25 22:52 03/06/25 22:52 Temp 99.8. Blood pressure 167/95 Narrative Exam Physical examination shows an alert male who is complaining of severe pain in his left upper extremity. The patient has marked induration of the deltoid extending into the arm with marked edema of the left arm left forearm. Able to move fingers. Marked induration to palpation. No palpable abscess. Radiologist says there is abscess. Bright red skin with very severe induration consistent with strep. Radial pulse 2+ good flexion extension of fingers left hand Results - Ortho Labs 03/06/25 14:47 03/06/25 14:47 Labs: Short CBC 03/06/25 Range/Units 14:47 WBC 16.7 H (3.8-10.6) Thou/mm3 Hgb 14.2 (13.5-16.0) g/dL Hct 41.0 (41.0-53.0) % Plt Count 387 (140-440) Thou/mm3 BMP 03/06/25 14:47 Sodium 131 L Potassium 4.3 Chloride 95 L Carbon Dioxide 28.2 BUN 6 L Creatinine 0.9 Glucose 96 Calcium 8.9 Liver Function 03/06/25 Range/Units 14:47 Total Bilirubin 1.5 H (0.3-1.2) mg/dL AST 62 H (0-34) U/L ALT 105 H (10-49) U/L Alkaline Phosphatase 109 (46-116) U/L Albumin 4.0 (3.5-5.0) gm/dL White count 16,000 Assessment & Plan Additional Assessment Additional comments: I looked at the CT scan and has marked swelling of deltoid. Goes along with the clinical setting. I am concerned about strep. With the amount of induration it goes along with a strep cellulitis. I am always concerned about group A strep. I talked to ER staff and this needs attention at a higher level of care. I have not been doing shoulder surgery for more than 10 years. Plan I told the patient I am very concerned. I want him transferred to a higher level of care. I want to make sure group A strep is covered with IV antibiotics he is received doxycycline IV. I feel both strep and staph need to be covered and I told the ER staff he absolutely must be transferred to a higher level of care. Told the ER staff that I recently had a patient with a pathologic fracture and it took us almost a week to get her transferred to a higher level care. In this case I do not want to be in that position. Told him that this infection could have permanent consequences. I told him this is a small community hospital and he absolutely needs to be transferred. With the amount of induration he could have pyomyositis.
[2025-03-06] MEDS: PIPER/TAZO INJ 4.5 GM in SODIUM CHLORIDE 0.9% (POP) 100 ML IV (23:23)
[2025-03-06] MEDS: HYDROmorphone INJ 2 MG/ML VIAL 1 MG IVP (23:23)
--- NOTE | 2025-03-06 23:38 | EDNOTE_ITS ---
Emergency Room Addendum <Gabriela Mullins - Last Filed: 03/07/25 05:40> Addendum Narrative: 2300: Care assumed from Jarad Shipman PA-C. Past medical, surgical, social and family history reviewed. Vitals and home medications reviewed. Results and treatment plan discussed. I will assume the care of the patient at this time and will follow the patient. Please refer to the emergency department record for history and examination from initial visit. 2339: Discussed case with Dr. Contreras from orthopedic surgery regarding consultation. Discussed patients ED course, exam findings, labs, and radiology results. Recommends transfer to a higher [id number]. Patient given fentanyl. On exam the patient has large area of redness and swelling to his left deltoid. Otherwise nontoxic but appears to be in pain. Afebrile with heart rate between 86 and 99. 0139: Discussed case with [facility] transfer center. Discussed patients ED course, exam findings, labs, and radiology results. Discussed case at great length with Dr. Dave and Dr. Armenta. Dr. Armenta is a general surgeon and feels that any general surgeon can take care of this patient. Recommends the patient to be treated at our facility. 0349: Discussed case with Dr. Hughes from general surgeon regarding consultation . Discussed patients ED course, exam findings, labs, and radiology results. States he will come and evaluate the patient, but expresses concern as he is not comfortable with doing the necessary procedure (as he has not performed it in 10 years). At this time, patient is resting comfortably and is afebrile. 0536: Dr. uHghes came and evaluated the patient. He feels the abscess is too deep into the muscle and feels that this should be done by orthopedic surgery due to the risk for compartment syndrome. See his note. 0600: Care signed out to Dr. Bradshaw (emergency physician). Past medical, surgi ansley, social and family history reviewed. Vitals and home medications reviewed. Results and treatment plan discussed. They will assume the care of the patient at this time and will follow the patient, pending transfer. <Cristel Cunningham MD - Last Filed: 03/07/25 03:49> Addendum Narrative: 2300: Care assumed from Manichanh Ratts, PA-C. Past medical, surgical, social and family history reviewed. Vitals and home medications reviewed. Results and treatment plan discussed. I will assume the care of the patient at this time and will follow the patient. Please refer to the emergency department record for history and examination from initial visit. 2339: Discussed case with Dr. Contreras from orthopedic surgery regarding consultation. Discussed patients ED course, exam findings, labs, and radiology results. Recommends transfer to a higher [id number]. Patient given fentanyl. On exam the patient has large area of redness and swelling to his left deltoid. Otherwise nontoxic but appears to be in pain. Afebrile with heart rate between 86 and 99.
[2025-03-07] VITALS (21 sets, daily range): BP systolic 105–169; BP diastolic 58–104; PULSE 70–99; RESP 14–98; TEMP 36.1–38.1; O2SAT 95–100; BMI 29.4
--- NOTE | 2025-03-07 01:00 | PC.NURSE ---
THIS HOT STICK MAN RECEIVED CALL FROM DR BARAJAS WHO REQUESTED PT TO HAVE MRI OF AFFECTED EXTREMITY, MD PETER MADE AWARE, AND STATED SHE DOES NOT FEEL IT IS NEEDED AT THIS TIME.
--- NOTE | 2025-03-07 01:48 | PC.NURSE ---
Transfer initiated to [facility] for ortho. Packet faxed, MD Trejo on the phone with their ortho stone cleaner at the moment.
[2025-03-07] MEDS: HYDROmorphone INJ 2 MG/ML VIAL 1 MG IVP (04:13)
[2025-03-07] MEDS: PIPER/TAZO 3.375 GM PREMIX 3.375 GM/50 ML BAG IV ×3 (04:56→22:34)
[2025-03-07] MEDS: ACETAMINOPHEN 325 MG TABLET 650 MG PO (04:58)
--- NOTE | 2025-03-07 05:31 | PC.NURSE ---
DR JIN ASSESSING PT AT THIS TIME.
[2025-03-07] MEDS: Vancomycin Inj 1,000 MG in SODIUM CHLORIDE 0.9% 250 ML 250 ML 150 MG IV (05:43)
--- NOTE | 2025-03-07 05:45 | PD.SURCONS ---
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 He started developing pain and swelling 2 days ago that has been getting progressively worse. Upon presentation to the emergency department a CT scan was obtained that revealed large abscess in his left deltoid. Orthopedic surgeon was consulted, he recommended transfer to higher level of care. Past Medical History Surgical History OTHER SURGICAL HX: Umbilical hernia repair, left inguinal hernia repair Meds Home Medications and Allergies Home Medications ?Medication ?Instructions ?Recorded ?Confirmed ?Type amlodipine 5 mg tablet 5 mg PO QDAY 02/04/24 02/08/24 History atorvastatin 10 mg tablet (Lipitor) 10 mg PO QDAY 02/04/24 02/08/24 History losartan 50 mg tablet 50 mg PO QDAY 02/04/24 02/08/24 History Allergies Allergy/AdvReac Type Severity Reaction Status Date / Time No Known Allergies Allergy Verified 03/06/25 13:45 Exam Vital Signs Temp Pulse Resp BP Pulse Ox O2 Del Method 100.3 F 96 16 142/91 H 95 Room Air 03/07/25 04:58 03/07/25 04:18 03/07/25 04:18 03/07/25 04:18 03/07/25 04:18 03/07/25 04:18 Constitutional Constitutional: mild distress Routine Extremities Exam Comments: He has significant cellulitis and induration of the left upper arm extending to shoulder. No obvious area of fluctuance. He has distal pulse, has motor and sensation intact at this time Assessment & Plan Additional Assessment Additional comments: Left shoulder shoulder abscess Plan Continue IV antibiotics. I explained to the patient that he has deep left shoulder abscess that needs to be drained and it is beyond the scope of my practice. I was not trained and never performed drainage off deep shoulder abscess and it will not be in his best interest but I perform an operation that I have never done before. I agree with our orthopedic surgeon that patient needs to be transferred to higher level of care sooner rather than later before he develops compartment syndrome.
--- NOTE | 2025-03-07 06:49 | PD.EDADDENDU ---
Emergency Room Addendum Addendum Narrative: 0600: Care assumed from Dr. Cunningham, the previous shift emergency physician. Past medical, surgical, social and family history reviewed. Vitals and home medications reviewed. I will assume the care of the patient at this time, pending transfer. Please refer to the emergency department record for history and examination from initial visit.?The following addendum documentation note is intended to reflect any pending information, findings, or radiology results not included in the patient?s initial chart. 0900: I spoke with surgeon Dr. Shanks. Discussed patients PMHx, HPI, ED course, exam findings, labs, and radiology results. States she will come evaluate the patient. 1000: Surgeon Dr. Shanks has evaluated the patient in the ED and states she will I&D the abscess. She agrees to consult. 1016: I spoke with resident working with hospitalist Dr. James. Discussed patients PMHx, HPI, ED course, exam findings, labs, and radiology results. The hospitalist agree to accept the patient for admission. We reviewed all the results, analysis, and treatment plans. Patient is amenable to admission.
[2025-03-07] MEDS: KETOROLAC INJ 30 MG/ML VIAL 15 MG IVP ×2 (10:21→17:07)
--- NOTE | 2025-03-07 11:24 | PD.SURCONS ---
HPI Consult details History of present illness: 39M with HTN, HLD and history of injection drug use presenting to ER with left shoulder pain and swelling. Pt states he is on methadone but relapsed a few days ago and injected into his shoulder, since then has developed worsening pain and swelling. Pt was evaluated previously in our ER and recommended for transfer to another facility however he has been declined by both orthopedic and general surgery who determined that pt can adequately be treated by a general surgeon here. Pt additionally notes malaise and anorexia, has not eaten since yesterday PMH: HTN, HLD PShx: Denies Meds: Methadone (last taken yesterday), denies any other medications currently Allergies: NKDA Review of Systems Review of Systems ROS Unobtainable: All systems reviewed & no additional complaints except as documented Meds Home Medications and Allergies Home Medications ?Medication ?Instructions ?Recorded ?Confirmed ?Type amlodipine 5 mg tablet 5 mg PO QDAY 02/04/24 02/08/24 History atorvastatin 10 mg tablet (Lipitor) 10 mg PO QDAY 02/04/24 02/08/24 History losartan 50 mg tablet 50 mg PO QDAY 02/04/24 02/08/24 History Allergies Allergy/AdvReac Type Severity Reaction Status Date / Time No Known Allergies Allergy Verified 03/06/25 13:45 Exam Vital Signs Temp Pulse Resp BP Pulse Ox O2 Del Method 99.0 F 82 19 139/87 H 96 Room Air 03/07/25 10:25 03/07/25 10:25 03/07/25 10:25 03/07/25 10:25 03/07/25 10:25 03/07/25 10:25 Constitutional Constitutional: no acute distress Routine Respiratory Exam Respiratory: Present no resp distress Routine Extremities Exam Comments: left upper arm erythematous, warm and indurated with blanching of skin upon palpation Results Results: Laboratory Laboratory results: results reviewed Results: Imaging Imaging narrative: CT reviewed Assessment & Plan Plan 39M presenting with left shoulder abscess in the deltoid muscle after injecting into the area. Attempts were made to have pt cared for by an orthopedic surgeon however he has been declined and ER was advised that pt should be managed by a general surgeon. I explained to the pt that I will make a longitudinal incision along the area of induration and do my best to express pus, however it is possible he will need repeated procedures. I also explained that he will have an open wound which will likely take weeks to fully heal. Pt expressed understanding and agrees to proceed
[2025-03-07 11:36] LABS: Basophils # (Auto) 0.0 Thou/mm3 (0.0-0.2); Basophils % (Auto) 0 % (0-2.5); Eosinophils # (Auto) 0.2 Thou/mm3 (0.0-0.5); Eosinophils % (Auto) 1 % (0-10); Hematocrit 36.8 % (41.0-53.0); Hemoglobin 12.8 g/dL (13.5-16.0); Immature Granulocytes Auto 0.07 Thou/mm3 (0.00-0.00); Lymphocytes # (Auto) 1.4 Thou/mm3 (1.0-4.8); Lymphocytes % (Auto) 9 % (10-50); Mean Corpuscular HGB Conc 34.8 g/dl (31.0-37.0); Mean Corpuscular Hemoglobin 30.3 pg (25.0-35.0); Mean Corpuscular Volume 87 fL (80-100); Monocytes # (Auto) 1.5 Thou/mm3 (0.0-0.8); Monocytes % (Auto) 9 % (0-12); Neutrophils # (Auto) 13.5 Thou/mm3 (1.8-7.7); Neutrophils % (Auto) 81 % (37-80); Nucleated Red Blood Cell # 0.00 Thou/mm3 (0.00-0.00); Nucleated Red Blood Cell % 0 /100 WBC (0); Platelet Count 325 Thou/mm3 (140-440); RDW Standard Deviation 41.4 fL (35.1-43.9); Red Blood Count 4.23 Miln/mm3 (4.50-5.90); White Blood Count 16.7 Thou/mm3 (3.8-10.6)
--- NOTE | 2025-03-07 11:49 | PC.NURSE ---
SPOKE WITH DR. SANCHEZ REGARDING PATIENT'S METHADONE DOSE AND DR. SANCHEZ STATED THAT SHE WOULD FOLLOW UP WITH PHARMACY.
[2025-03-07 11:52] LABS: INR 1.2 (0.9-1.3); Prothrombin Time 12.7 Seconds (9.0-12.2)
[2025-03-07 12:06] LABS: Anion Gap 7 (7-16); BUN/Creatinine Ratio 9 Ratio (12-20); Blood Urea Nitrogen 6 mg/dL (9-23); Calcium 8.2 mg/dL (8.3-10.6); Carbon Dioxide 25.8 mMol/L (20.0-31.0); Chloride 101 mMol/L (98-107); Creatinine (Component) 0.7 mg/dL (0.6-1.3); Estimated Creatinine Clearance 134.1 mL/min (>60); Glucose 100 mg/dL (74-106); Magnesium 1.4 mg/dL (1.6-2.6); Osmolality,Calculated 265 (275-295); Phosphorous 2.9 mg/dL (2.4-5.1); Potassium 3.9 mMol/L (3.4-5.1); Sodium 134 mMol/L (136-145); eGFR > 60 See Note
--- NOTE | 2025-03-07 12:06 | PC.CC ---
Patient is a 39 year-old male who presents to the hospital for Left Arm Swollen from Poke with a Syringe. MARY JOWHenrietta made [id number] contact with patient. ASW introduced self, role, and reason for visit.?Patient appeared alert and oriented to self, location, and situation.?Patient was pleasant and engaged in initial assessment. Patient confirmed information on demographics and reports his next of kin is his mother, Julisa Beasley . Per patient he is able to ambulate independently and complete his own ADLs. Patient does not require any DME at home and is healthy overall. Patient receives primary care at [facility] with Cheri Rock and uses [facility] pharmacy for prescription medications. Upon discharge patient reports he plans to return back home. emergency services dispatcher to follow up with any discharge needs.
--- NOTE | 2025-03-07 12:10 | PC.NURSE ---
DR. BOO NOTIFIED VIA TELEPHONE THAT PATIENT AND FAMILY WOULD LIKE TO SPEAK TO HER REGARDING SURGERY. DR. BOO STATED SHE WOULD BE AVAILABLE TO COME TO PATIENT'S ROOM AROUND 1400, PATIENT MADE AWARE.
--- NOTE | 2025-03-07 13:02 | PC.NURSE ---
DR. BOO AND DR. DORSEY AT BEDSIDE SPEAKING WITH PATIENT AND FAMILY.
--- NOTE | 2025-03-07 14:05 | PD.RESHP ---
Documentation for date of: 03/07/25 Senior resident attestation: Patient evaluated and examined at the bedside, plan of care discussed with rest of the team including my attending physician, except as noted. The patient is seen [id number] male with a known history of IV drug abuse, since 2019, who came in following intramuscular administration of heroin, as he was not able to find IV access on him. Patient stated that he had sticks himself in the deltoid in the past to when he is unable to find IV. 3 days ago patient developed shaking chills and sudden onset rash on the shoulder, which worsened overnight extending all the way to his hand. Initially patient was not able to flex his elbow joint or move his shoulder joint. But slowly after starting antibiotics the swelling improved to the point that he can flex his elbow joint and wrist. There was initially concern for compartment syndrome as well as extension into the shoulder joint capsule, we did try to transfer the patient out but was declined by orthopedic surgery, per documentation recommended General Surgery management of abscess noted on CT. CT showed abscess in deltoid muscle 3x2x8 cm, general surgeon Dr. Shanks recommended to admit the patient for incision and drainage with a longitudinal incision. The patient was admitted to medical floor, started on IV antibiotics vancomycin and Zosyn, pending microbiology results. #Cellulitis with abscess, rule out compartment syndrome?strong radial pulse palpated, noted swollen upper extremity but able to compress to touch. Less likely compartment syndrome, will continue with IV antibiotics and subsequent I&D by general surgery. #History of IV drug use?will get acute hepatitis panel and HIV panel. #Hepatitis C viral serology positive?will recommend outpatient follow-up with infectious disease for PCR and possible treatment of viral hepatitis. Quresh PGY3 HPI History of Present Illness Chief complaint: RUE Pain History of present illness: Mr. Olvera is a 39 year old male with a history of hypertension, hyperlipidemia, polysubstance use disorder fentanyl and methamphetamine on methadone who presented to the ED from home with left arm swelling and pain. The patient was admitted for management of a left deltoid abscess. History was obtained from patient, his mother, and his girlfriend. On Saturday 03/03, the patient tried to go to his methadone clinic, but they were closed early that day. As a result, the patient ended up injecting heroin into his left arm. When the patient went home, the patient talked with his mother and said that he did something he was not supposed to . According to the patient's mother, the patient's left arm seemed slightly swollen and painful. The patient then rested for most of Sunday 03/04, and on Monday 03/05 the patient started to develop a fever that was on and off and had significantly increased swelling on Monday 03/05 night. The patient's left arm pain became progressively worse throughout this time to a point where even small movements would elicit significant pain from the patient. The patient would then seek care at the [facility] ED on Tuesday 03/06 night. The patient stated that he had only started using injectable drugs a few weeks ago, the patient claims to have been sober for 6 months. Patient follows to [facility] for medical appointments. Patient has been prescribed medications for hypertension and hyperlipidemia, but has not been taking any medications for at least a year. In the ED, multiple imaging modalities were performed, ultimately resulting in a humerus CT scan that showed an abscess in the deltoid muscle that measured 3.1 x 2.2 x 8.4. The ED contacted general surgery and orthopedic surgery, both of whom stated that this patient should receive higher level of care due to concern for deeper infection, possible development of compartment syndrome, and overall believe that this is beyond their scope of practice. ED tried to transfer the patient to another facility, but this was rejected by outside facilities as they believe that this was within the scope of practice for general surgery. Ultimately, general surgery Dr. Shanks decided to attempt debridement for this patient, but noted that this may be a difficult procedure on the patient. Patient was given doxycycline, piperacillin/tazobactam, and vancomycin one-time doses in the ED. The patient's pain became much more tolerable afterwards, with the patient expressing only a 3 out of 10 pain with active movement of the left arm against resistance. Patient endorses feeling feverish over the past few days. Patient denies chills, headaches, vision changes, cough, shortness of breath, chest pain, heart palpitations, abdominal pain, constipation, diarrhea, dysuria, hematuria, pain elsewhere in his body. Past Surgical History: ? Umbilical hernia repair ? 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 Skin: Warm, dry, intact. Head: Normocephalic, atraumatic. Eye: Normal conjunctiva, PERRL. Cardiovascular: Regular rate and rhythm, no murmur, +S1/S2. Respiratory: Lungs are clear to auscultation, respirations unlabored, no crackles, no wheezing. Gastrointestinal: Soft, nontender, non-distended. No guarding or rebound tenderness. Extremities: No edema, no cyanosis, no clubbing. 2+ radial pulse bilaterally, 2+ pedal pulse bilaterally. Erythema and warmth with swelling on left arm from shoulder to above elbow. Neuro: No focal deficits observed. Conversant, moving all extremities. No overt cerebellar signs/incoordination. Psychiatric: Cooperative, appropriate affect. Results: Labs 03/08/25 06:30 03/08/25 06:30 Labs: Short CBC 03/06/25 03/07/25 Range/Units 14:47 11:29 WBC 16.7 H 16.7 H (3.8-10.6) Thou/mm3 Hgb 14.2 12.8 L (13.5-16.0) g/dL Hct 41.0 36.8 L (41.0-53.0) % Plt Count 387 325 D (140-440) Thou/mm3 BMP 03/06/25 03/07/25 14:47 11:29 Sodium 131 L 134 L Potassium 4.3 3.9 Chloride 95 L 101 Carbon Dioxide 28.2 25.8 BUN 6 L 6 L Creatinine 0.9 0.7 Glucose 96 100 Calcium 8.9 8.2 L Liver Function 03/06/25 Range/Units 14:47 Total Bilirubin 1.5 H (0.3-1.2) mg/dL AST 62 H (0-34) U/L ALT 105 H (10-49) U/L Alkaline Phosphatase 109 (46-116) U/L Albumin 4.0 (3.5-5.0) gm/dL Quality Measures Quality Measures none Medications Home Medications and Allergies Home Medications ?Medication ?Instructions ?Recorded ?Confirmed ?Type amlodipine 5 mg tablet 5 mg PO QDAY 02/04/24 03/07/25 History atorvastatin 10 mg tablet (Lipitor) 10 mg PO QDAY 02/04/24 03/07/25 History losartan 50 mg tablet 50 mg PO QDAY 02/04/24 03/07/25 History methadone 10 mg/mL oral concentrate 60 mg PO QDAY 03/07/25 03/07/25 History Allergies Allergy/AdvReac Type Severity Reaction Status Date / Time No Known Allergies Allergy Verified 03/06/25 13:45 Visit Medications Acetaminophen (Acetaminophen 325 Mg Tablet) 650 mg PO Q6H PRN PRN Reason: PAIN 1-3 OR FEVER > 101 Stop: 04/06/25 13:53 Hydrocodone Bitart/Acetaminophen (Hydrocodone/Apap 7.5/325 Tablet) 1 tab PO Q6HR PRN PRN Reason: PAIN SCALE 4-6 (Moderate Stop: 03/12/25 11:06 Amlodipine Besylate (Amlodipine Besylate 5 Mg Tablet) 5 mg PO QDAY THIERRY Stop: 04/07/25 08:59 Famotidine (Famotidine Inj 10 Mg/Ml Vial 2 Ml) 20 mg IVP Q12HR THIERRY Stop: 04/06/25 20:59 Piperacillin/Tazobactam/Dextrose (Zosyn) 3.375 gm in 50 mls @ 12.5 mls/hr IV Q8HR THIERRY; Protocol Stop: 03/14/25 13:59 Vancomycin HCl (Vancomycin/Water 1gm Ivpb) 200 mls @ 120 mls/hr IV BID@1000,2200 [facility] Stop: 03/14/25 21:59 Ketorolac Tromethamine (Ketorolac Inj 30 Mg/Ml Vial) 15 mg IVP Q6H PRN PRN Reason: PAIN SCALE 4-6 (Moderate Stop: 03/12/25 10:13 Last Admin: 03/07/25 10:21 Dose: 15 mg Losartan Potassium (Losartan Potassium 25 Mg Tablet) 50 mg PO QDAY [facility] Stop: 04/07/25 08:59 Morphine Sulfate (Morphine Sulf Inj 10 Mg/Ml Vial) 4 mg IVP Q4H PRN PRN Reason: PAIN SCALE 7-10 (Severe Non-Formulary Medication (Methadone) 60 mg PO QDAY [facility] Stop: 04/07/25 08:59 Ondansetron HCl (Ondansetron Inj 2 Mg/Ml Inj 2 Ml) 4 mg IVP Q6H PRN; Protocol PRN Reason: NAUSEA OR VOMITING Stop: 04/06/25 13:53 Pharmacy Consult (Vancomycin Pharmacy To Dose 1 Each Each) 1 each IV QDAY PRN PRN Reason: CONSULT Stop: 04/06/25 11:14 Discontinued Medications Acetaminophen (Acetaminophen 325 Mg Tablet) 650 mg PO X1 ONE Stop: 03/07/25 04:16 Last Admin: 03/07/25 04:58 Dose: 650 mg Diphtheria/Tetanus/Acell Pertussis (Diphth,Pertuss(Acell),Tet Vac 0.5 Ml Syr- Adult) 0.5 ml IMi .ONCE ONE Stop: 03/06/25 19:44 Last Admin: 03/06/25 20:14 Dose: 0.5 ml Hydromorphone HCl (Hydromorphone Inj 2 Mg/Ml Vial) 1 mg IVP X1 ONE Stop: 03/06/25 23:08 Last Admin: 03/06/25 23:23 Dose: 1 mg Hydromorphone HCl (Hydromorphone Inj 2 Mg/Ml Vial) 1 mg IVP X1 ONE Stop: 03/07/25 04:04 Last Admin: 03/07/25 04:13 Dose: 1 mg Doxycycline Hyclate 100 mg/ (Sodium Chloride) 100 mls @ 100 mls/hr IV X1 ONE Stop: 03/06/25 20:42 Last Infusion: 03/06/25 21:20 Dose: Infused Sodium Chloride (Ns) 1,000 mls @ 999 mls/hr IV .Q1H1M ONE Stop: 03/06/25 21:50 Last Infusion: 03/06/25 23:26 Dose: Infused Piperacillin Sod/Tazobactam (Sod 4.5 gm/ Sodium Chloride) 100 mls @ 200 mls/hr IV X1 ONE Stop: 03/06/25 23:27 Last Infusion: 03/06/25 23:55 Dose: Infused Piperacillin/Tazobactam/Dextrose (Zosyn) 3.375 gm in 50 mls @ 100 mls/hr IV X1 ONE Stop: 03/07/25 04:57 Last Infusion: 03/07/25 05:29 Dose: Infused Vancomycin HCl 1,000 mg/ (Sodium Chloride) 250 mls @ 150 mls/hr IV X1 ONE Stop: 03/07/25 06:29 Last Infusion: 03/07/25 07:24 Dose: Infused Lidocaine HCl (Lidocaine Inj Pf 1% 30 Ml Vial) 30 ml INFL X1 ONE Stop: 03/06/25 21:39 Last Admin: 03/06/25 22:20 Dose: Not Given Morphine Sulfate (Morphine Sulf Inj 10 Mg/Ml Vial) 4 mg IVP X1 ONE Stop: 03/06/25 20:19 Last Admin: 03/06/25 20:54 Dose: 4 mg Morphine Sulfate (Morphine Sulf Inj 10 Mg/Ml Vial) 4 mg IVP X1 ONE Stop: 03/06/25 21:39 Last Admin: 03/06/25 22:19 Dose: 4 mg Assessment & Plan Plan Mr. Olvera is a 39 year old male with a history of hypertension, hyperlipidemia, polysubstance use disorder fentanyl and methamphetamine on methadone who presented to the ED from home with left arm swelling and pain. The patient was admitted for management of a left deltoid abscess. #Cellulitis of left arm with deltoid abscess secondary to #IV drug abuse #Concern for compartment syndrome r/o Patient admitted with erythema, warmth, swelling of left arm arm from approximately shoulder to just above elbow. Boundaries of erythema are vaguely defined, not suggestive of erysipelas. Elbow x-ray negative, humerus x-ray negative, left upper extremity ultrasound showed partial cystic complex mass and soft tissue 7.2 x 3.2 x 3.4, and CT humerus showed abscess and deltoid muscle 3.1 x 2.2 x 8.4. WBC elevated at 16.7 with left shift and CRP 18.5. Patient has recent history of using IV drug use just prior to symptoms. General surgery and orthopedic surgery initially attempted transfer due to significant concern for compartment syndrome. Other facilities denied transfer. Patient improved with single dose of doxycycline, piperacillin/tazobactam, vancomycin. Patient is able to move left arm and flex both elbow, wrist, and fingers. Left radial pulse 2+. General surgery is aware and will modify surgical procedure for I&D to account for possible compartment syndrome. ? Pending debridement by general surgery Dr. Shanks ? Started antibiotics vancomycin and piperacillin/tazobactam ? Empiric regimen will cover for Streptococcus which is most likely cause, and possible Staphylococcus infection ? Will follow progression of infection with daily CBC and physical exams ? Ordered blood cultures x 2, pending left deltoid abscess culture #Elevated liver enzymes #Suspicious for hepatitis Patient noted to have total bilirubin of 1.5, AST 62, ALT 105. All previous liver enzyme recordings prior to 03/07 ED visit were within normal limits. Given IV drug use, will have increased suspicion for hepatitis ? Will monitor with daily CMP ? Ordered hepatitis panel #Hypertension, untreated due to poor compliance Patient has a history of hypertension but has not been compliant with medication for at least a year. Patient had blood pressure of 155/96 initially in ED, with as high as 169/104. ? Will monitor and reassess need for pharmacologic intervention after debridement #Hyperlipidemia, untreated due to poor compliance Patient has a history of hyperlipidemia but has not been compliant with medication for at least a year. ? Lipid panel ordered #Polysubstance abuse, on methadone Patient has a history of multiple substance use abuse, including methamphetamine, fentanyl, heroin. Patient is currently seeking care at a methadone center. Patient is on methadone 60 mg daily, last dose before admission to [facility] taken 03/06. ? Restarted methadone 60 mg daily DVT Prophylaxis: N/A GI Prophylaxis: Famotidine Bowel: N/A Diet: NPO [place]: N/A Lines: Peripheral IV Antibiotics: Vancomycin and piperacillin/tazobactam [03/07--] Code Status: FULL Reason for Hospitalization: Left deltoid abscess and cellulitis Other Barriers to Discharge: General surgery debridement Patient plan of care was discussed with the senior resident Dr. Duenas and attending physician Dr. Erika Skelton, PGY1 Attending Provider Attestation/Addendum I attest that I was physically present for the evaluation, physical examination, lab and imaging review of the patient with the residents. I discussed the case with the residents and agree with the findings and plans of care as documented above. After examination of the patient and review of the clinical data I feel that this patient needs admission to the hospital for further treatment/evaluation. Patient is a 39 years old male with past medical history of hypertension, hyperlipidemia, polysubstance use disorder with fentanyl and methamphetamine currently on methadone who presented to the ED with complaint of left arm swelling and pain. Patient injected heroin on his arm on 726 following which he started having redness, swelling and pain on his left arm which became progressively worse. He denied any fever or chills. In the ED, initially, patient was mildly hypertensive, rest of the vitals were within normal limits, highest temperature being 100.3 ?F. Lab results show WBC of 16.7, hemoglobin 12.8. Sodium was 131 yesterday, improved to 134 today. Patient also had bilirubin of 1.5, AST 62 and ALT 105, CRP 18.5, magnesium 1.4, urine toxicology was positive for opiate, fentanyl, methamphetamine and marijuana. CT of the humerus showed abscess in deltoid muscle on the left arm. Pain is total eval was negative for DVT. Initial attempt was made for the patient to transfer to higher center for evacuation of abscess being inside muscle and proximity to the joint. Multiple facilities declined stating patient can be managed with general surgery or orthopedics in house. Discussed with general surgery, will follow patient with us and perform I&D. We will admit the patient for further management of left deltoid abscess secondary to needle injection. We will start him on broad-spectrum antibiotics with IV vancomycin and Zosyn. We will obtain cultures. Patient is planned for I&D. Patient's high blood pressure likely secondary to pain, we will monitor closely, may start antihypertensive if consistently high. Restarted his home methadone, plan to mortgage loan counselor extensively before discharge regarding his polysubstance abuse. We will also obtain social service worker referral. Mona James MD
[2025-03-07] MEDS: MORPHINE SULF INJ 10 MG/ML VIAL 4 MG IVP (14:59)
[2025-03-07 15:06] LABS: HIV (1&2) Antibody Rapid Non-Reactive
[2025-03-07 15:15] LABS: Hepatitis A Antibody IgM Non Reactive (Non React); Hepatitis B Core Antibody IgM Non Reactive (Non React); Hepatitis B Surface Antigen Non Reactive (Non React); Hepatitis C Antibody Reactive (Non React)
--- NOTE | 2025-03-07 19:15 | PC.NURSE ---
Patient requesting a nicotine patch and methadone. RN will contact hospitalists.
--- NOTE | 2025-03-07 19:28 | PC.NURSE ---
Addendum entered by Senthil Watkins RN 03/07/25 21:13: Received telphone report from M[facility] Nicolas in surgery. Original Note: Pt. went down to surgery @[id number].
--- NOTE | 2025-03-07 20:26 | SUR.PHASEI ---
2025 Patient arrived to recovery resting comfortably in [facility], on oxygen 3L via oxy mask with an oral airway in place, breathing unlabored, vital signs stable, dressing intact to left upper arm; packing of cling wrap, abd, kerlix roll, silk tape, no bleeding noted, report received from Naya EPPS and Dr. Long
--- NOTE | 2025-03-07 20:26 | PD.SUROPNT ---
Date of Procedure 03/07/25 Pre Op Diagnosis Right shoulder abscess Post Op Diagnosis Same Procedure Incision and drainage of right shoulder abscess Findings Right shoulder abscess within deltoid containing copious pus Procedure Description After discussion of risk and benefits, patient was brought to the operating room, SCDs were placed and general anesthesia with LMA was induced. He was prepped and draped in usual sterile fashion. After timeout a longitudinal incision was made at the lateral shoulder at the area of most fluctuance with a #15 blade that was approximately 3 cm. There was immediate return of pus from which a culture was taken. The wound was probed and there was noted to be a cavity within the deltoid muscle from which more pus was expressed. Approximately 50 cc of pus was expressed in total. The wound was probed to break up any loculations and it was irrigated with Betadine, hydrogen peroxide and saline. There was minimal oozing at the skin edges which was controlled with electrocautery. The wound was packed with a moist pam, covered with an abdominal pad and wrapped with Kerlix. Patient was extubated and brought to PACU in stable condition Pathology / specimen Other (Wound culture) Estimated Blood Loss 20 Surgeon Marisel Shanks MD Surgical Staff Operation Date: 03/07/25 14:30 Case Staff Anesthesiologist: Scooby Long
--- NOTE | 2025-03-07 21:05 | SUR.PHASEI ---
patient sitting up in gurney eating jello and drinking juice; tolerating well, denies nausea
--- NOTE | 2025-03-07 21:19 | SUR.PHASEI ---
2107 Report given to Senthil EPPS, patient meets discharge criteria from recovery, awake and alert, breathing unlabored, vital signs stable, denies pain, dressing intact; no bleeding noted, patient ate two jello's, two apple sauces and drank 3 juices; tolerated well, denies nausea. 2118 Patient transported via [facility] to room 376 without incident, patients girlfriend and mother accompanied transport, patient able to walk from [facility] to his bed, patient resting comfortably in his bed with call light in reach when this journalists and other writers left patients room, his family at bedside
[2025-03-07] MEDS: FAMOTIDINE INJ 10 MG/ML VIAL 2 ML 20 MG IVP (22:01)
[2025-03-08] VITALS (9 sets, daily range): BP systolic 103–134; BP diastolic 56–84; PULSE 61–89; RESP 17–96; TEMP 36.1–36.9; O2SAT 94–99
[2025-03-08] MEDS: HYDROcodone/APAP 7.5/325 TABLET 1 TAB PO ×2 (00:10→14:47)
[2025-03-08] MEDS: MORPHINE SULF INJ 10 MG/ML VIAL 4 MG IVP ×2 (04:50→13:10)
[2025-03-08] MEDS: PIPER/TAZO 3.375 GM PREMIX 3.375 GM/50 ML BAG IV ×3 (05:09→21:04)
[2025-03-08 07:17] LABS: Basophils # (Auto) 0.0 Thou/mm3 (0.0-0.2); Basophils % (Auto) 0 % (0-2.5); Eosinophils # (Auto) 0.4 Thou/mm3 (0.0-0.5); Eosinophils % (Auto) 3 % (0-10); Hematocrit 36.7 % (41.0-53.0); Hemoglobin 12.6 g/dL (13.5-16.0); Immature Granulocytes Auto 0.06 Thou/mm3 (0.00-0.00); Lymphocytes # (Auto) 1.6 Thou/mm3 (1.0-4.8); Lymphocytes % (Auto) 12 % (10-50); Mean Corpuscular HGB Conc 34.3 g/dl (31.0-37.0); Mean Corpuscular Hemoglobin 30.3 pg (25.0-35.0); Mean Corpuscular Volume 88 fL (80-100); Monocytes # (Auto) 1.2 Thou/mm3 (0.0-0.8); Monocytes % (Auto) 9 % (0-12); Neutrophils # (Auto) 9.6 Thou/mm3 (1.8-7.7); Neutrophils % (Auto) 75 % (37-80); Nucleated Red Blood Cell # 0.00 Thou/mm3 (0.00-0.00); Nucleated Red Blood Cell % 0 /100 WBC (0); Platelet Count 323 Thou/mm3 (140-440); RDW Standard Deviation 42.4 fL (35.1-43.9); Red Blood Count 4.16 Miln/mm3 (4.50-5.90); White Blood Count 12.8 Thou/mm3 (3.8-10.6)
[2025-03-08 07:35] LABS: Alanine Aminotransferase 82 U/L (10-49); Albumin, Serum 3.1 gm/dL (3.5-5.0); Albumin/Globulin Ratio 1.2 (1.2-2.2); Alkaline Phosphatase 124 U/L (46-116); Anion Gap 6 (7-16); Aspartate Amino Transferase 64 U/L (0-34); BUN/Creatinine Ratio 9 Ratio (12-20); Bilirubin,Total 0.5 mg/dL (0.3-1.2); Blood Urea Nitrogen 7 mg/dL (9-23); Calcium 8.1 mg/dL (8.3-10.6); Calcium (Corrected) 8.8 mg/dL (8.5-10.1); Carbon Dioxide 28.5 mMol/L (20.0-31.0); Chloride 101 mMol/L (98-107); Creatinine (Component) 0.8 mg/dL (0.6-1.3); Estimated Creatinine Clearance 119.1 mL/min (>60); Globulin 2.6 gm/dL (2.3-3.5); Glucose 108 mg/dL (74-106); Magnesium 1.4 mg/dL (1.6-2.6); Osmolality,Calculated 269 (275-295); Phosphorous 4.3 mg/dL (2.4-5.1); Potassium 4.0 mMol/L (3.4-5.1); Sodium 135 mMol/L (136-145); Total Protein 5.7 gm/dL (5.7-8.2); eGFR > 60 See Note
[2025-03-08] MEDS: METHADONE HCL 10 MG TABLET 60 MG PO (09:09)
[2025-03-08] MEDS: LOSARTAN POTASSIUM 25 MG TABLET 50 MG PO (09:09)
[2025-03-08] MEDS: FAMOTIDINE INJ 10 MG/ML VIAL 2 ML 20 MG IVP ×2 (09:10→21:02)
--- NOTE | 2025-03-08 09:19 | PD.RESPRO ---
Documentation for date of: 03/08/25 Senior resident attestation: Patient evaluated and examined at the bedside, plan of care discussed with rest of the team including my attending physician, except as noted. The patient is seen [id number] male with a known history of IV drug abuse, since 2019, who came in following intramuscular administration of heroin, as he was not able to find IV access on him. Patient stated that he had sticks himself in the deltoid in the past to when he is unable to find IV. 3 days ago patient developed shaking chills and sudden onset rash on the shoulder, which worsened overnight extending all the way to his hand. Initially patient was not able to flex his elbow joint or move his shoulder joint. But slowly after starting antibiotics the swelling improved to the point that he can flex his elbow joint and wrist. There was initially concern for compartment syndrome as well as extension into the shoulder joint capsule, we did try to transfer the patient out but was declined by orthopedic surgery, per documentation recommended General Surgery management of abscess noted on CT. CT showed abscess in deltoid muscle 3x2x8 cm, general surgeon Dr. Shanks recommended to admit the patient for incision and drainage with a longitudinal incision. The patient was admitted to medical floor, started on IV antibiotics vancomycin and Zosyn, pending microbiology results. #Cellulitis with abscess, rule out compartment syndrome?strong radial pulse palpated, noted swollen upper extremity but able to compress to touch. Less likely compartment syndrome, will continue with IV antibiotics and subsequent I&D by general surgery. #History of IV drug use?will get acute hepatitis panel and HIV panel. #Hepatitis C viral serology positive?will recommend outpatient follow-up with infectious disease for PCR and possible treatment of viral hepatitis. Quresh PGY3 Subjective Subjective Interval history: Overnight events: No acute events overnight. Patient was seen and examined at bedside. AM vitals and labs reviewed. General surgery performed I&D yesterday 03/07 in the evening. 50 cc of pus was expressed and patient has been afebrile since surgery. Patient was relaxing in his bed with his girlfriend. The patient stated that he had 10 out of 10 pain, but did not seem to be in any acute distress. Reiterated to patient that there are pain medications as needed for him as the patient did not request for any pain medications this morning. Patient states that Toradol seemed to helped the most for him. Patient has no other complaints at this time. Patient denies abdominal pain. Patient was made aware of his hep C status. Possible discharge home tomorrow depending on blood culture results. Review of systems otherwise negative except for what is mentioned above. Exam Vital Signs Temp Pulse Resp BP Pulse Ox O2 Del Method O2 Flow Rate 97.6 F 64 17 134/84 H 94 L Room Air 3 03/08/25 12:03/08/25 12:03/08/25 12:03/08/25 12:03/08/25 12:03/08/25 12:03/07/25 20:36 Narrative Exam Physical Exam: General: Alert, no acute distress. Skin: Warm, dry, intact, no obvious rash. Head: Normocephalic, atraumatic. Eye: Normal conjunctiva, PERRL. Cardiovascular: Regular rate and rhythm, no murmur, +S1/S2. Respiratory: Lungs are clear to auscultation, respirations unlabored, no crackles, no wheezing. Gastrointestinal: Soft, nontender, non-distended. No guarding or rebound tenderness. Extremities: No edema, no cyanosis, no clubbing. 2+ radial pulse bilaterally, 2+ pedal pulse bilaterally. No erythema on left shoulder. Lower left arm above elbow wrapped in bandage with spots of light yellow/red discoloration. No overt bleeding. Patient able to move LUE without difficulty. Neuro: No focal deficits observed. Conversant, moving all extremities. No overt cerebellar signs/incoordination. Psychiatric: Cooperative, appropriate affect. Objective Labs 03/08/25 06:30 03/08/25 06:30 Labs: Laboratory Results - last 24 hr 03/07/25 03/08/25 11:29 06:30 WBC 12.8 H RBC 4.16 L Hgb 12.6 L Hct 36.7 L MCV 88 MCH 30.3 MCHC 34.3 RDW Std Deviation 42.4 Plt Count 323 Neut % (Auto) 75 Lymph % (Auto) 12 [place] % (Auto) 9 Eos % (Auto) 3 Baso % (Auto) 0 Neut # (Auto) 9.6 H Lymph # (Auto) 1.6 [place] # (Auto) 1.2 H Eos # (Auto) 0.4 Baso # (Auto) 0.0 Immature Gran # (Auto) 0.06 H Absolute Nucleated RBC 0.00 Immature Gran % 1 H Nucleated RBC % 0 Sodium 135 L Potassium 4.0 Chloride 101 Carbon Dioxide 28.5 Anion Gap 6 L BUN 7 L Creatinine 0.8 Estim Creat Clear Calc 119.1 eGFR > 60 BUN/Creatinine Ratio 9 L Glucose 108 H Calculated Osmolality 269 L Calcium 8.1 L Corrected Calcium 8.8 Phosphorus 4.3 Magnesium 1.4 L Total Bilirubin 0.5 D AST 64 H ALT 82 H Alkaline Phosphatase 124 H Total Protein 5.7 Albumin 3.1 L D Globulin 2.6 Albumin/Globulin Ratio 1.2 Hepatitis A IgM Ab Non Reactive Hep Bs Antigen Non Reactive Hep B Core IgM Ab Non Reactive Hepatitis C Antibody Reactive A HIV 1&2 Antibody Rapid Non-Reactive Quality Measures Quality Measures none Assessment & Plan Assessment Current Active Medications: Generic Name Dose Route Start Last Admin Trade Name Freq PRN Reason Stop Dose Admin Acetaminophen 650 mg 03/07/25 13:54 Acetaminophen 325 Mg Tablet PO 04/06/25 13:53 Q6H PRN PAIN 1-3 OR FEVER > 101 Hydrocodone Bitart/Acetaminophen 1 tab 03/07/25 11:07 03/08/25 00:10 Hydrocodone/Apap 7.5/325 Tablet PO 03/12/25 11:06 1 tab Q6HR PRN Administration PAIN SCALE 4-6 (Moderate Amlodipine Besylate 5 mg 03/08/25 09:00 03/08/25 09:11 Amlodipine Besylate 5 Mg Tablet PO 04/07/25 08:59 5 mg QDAY THIERRY Administration Famotidine 20 mg 03/07/25 21:00 03/08/25 09:10 Famotidine Inj 10 Mg/Ml Vial 2 Ml IVP 04/06/25 20:59 20 mg Q12HR THIERRY Administration Piperacillin/Tazobactam/Dextrose 3.375 gm in 50 mls @ 12.5 mls/hr 03/07/25 14:00 03/08/25 05:09 Zosyn IV 03/14/25 13:59 12.5 mls/hr Q8HR THIERRY Administration Protocol Vancomycin HCl 250 mls @ 120 mls/hr 03/08/25 10:00 03/08/25 10:17 Vancomycin/Water 1250 Mg Ivpb IV 03/15/25 09:59 120 mls/hr BID@1000,2200 THIERRY Administration Protocol Ketorolac Tromethamine 15 mg 03/07/25 10:14 03/08/25 12:17 Ketorolac Inj 30 Mg/Ml Vial IVP 03/12/25 10:13 15 mg Q6H PRN Administration PAIN SCALE 4-6 (Moderate Losartan Potassium 50 mg 03/08/25 09:00 03/08/25 09:09 Losartan Potassium 25 Mg Tablet PO 04/07/25 08:59 50 mg QDAY THIERRY Administration Methadone HCl 60 mg 03/08/25 09:00 03/08/25 09:09 Methadone Hcl 10 Mg Tablet PO 04/07/25 08:59 60 mg QDAY THIERRY Administration Protocol Nicotine 21 mg 03/08/25 12:30 03/08/25 12:33 Nicotine Patch 21 Mg/24 Hr Patch.Td24 TOP 04/07/25 12:29 21 mg QDAY THIERRY Administration Ondansetron HCl 4 mg 03/07/25 13:54 Ondansetron Inj 2 Mg/Ml Inj 2 Ml IVP 04/06/25 13:53 Q6H PRN NAUSEA OR VOMITING Protocol Pharmacy Consult 1 each 03/07/25 11:15 Vancomycin Pharmacy To Dose 1 Each Each IV 04/06/25 11:14 QDAY PRN CONSULT Plan Mr. Olvera is a 39 year old male with a history of hypertension, hyperlipidemia, polysubstance use disorder fentanyl and methamphetamine on methadone who presented to the ED from home with left arm swelling and pain. The patient was admitted for management of a left deltoid abscess. #Cellulitis of left arm with deltoid abscess secondary to #IV drug abuse #Concern for compartment syndrome r/o Patient admitted with erythema, warmth, swelling of left arm arm from approximately shoulder to just above elbow. Boundaries of erythema are vaguely defined, not suggestive of erysipelas. Elbow x-ray negative, humerus x-ray negative, left upper extremity ultrasound showed partial cystic complex mass and soft tissue 7.2 x 3.2 x 3.4, and CT humerus showed abscess and deltoid muscle 3.1 x 2.2 x 8.4. WBC elevated at 16.7 with left shift and CRP 18.5. Patient has recent history of using IV drug use just prior to symptoms. General surgery and orthopedic surgery initially attempted transfer due to significant concern for compartment syndrome. Other facilities denied transfer. Patient improved with single dose of doxycycline, piperacillin/tazobactam, vancomycin. Patient is able to move left arm and flex both elbow, wrist, and fingers. Left radial pulse 2+. General surgery is aware and will modify surgical procedure for I&D to account for possible compartment syndrome. ? Debridement completed 03/[address] Shanks ? Started antibiotics vancomycin and piperacillin/tazobactam ? Empiric regimen will cover for Streptococcus which is most likely cause, and possible Staphylococcus infection ? Will follow progression of infection with daily CBC and physical exams ? Ordered blood cultures x 2, pending cultures ? Due to IV drug use, will consider obtaining echocardiogram if blood cultures positive #Hepatitis C infection #Elevated liver enzymes Patient noted to have total bilirubin of 1.5, AST 62, ALT 105. All previous liver enzyme recordings prior to 03/07 ED visit were within normal limits. Given IV drug use, will have increased suspicion for hepatitis ? Will monitor with daily CMP ? Ordered hepatitis panel ? Hep C antibody reactive, patient made aware, advised patient to follow-up outpatient due to being asymptomatic #Hypertension, untreated due to poor compliance Patient has a history of hypertension but has not been compliant with medication for at least a year. Patient had blood pressure of 155/96 initially in ED, with as high as 169/104. ? Will monitor and reassess need for pharmacologic intervention after debridement #Hyperlipidemia, untreated due to poor compliance Patient has a history of hyperlipidemia but has not been compliant with medication for at least a year. ? Ordered lipid panel ? Have patient follow up outpatient #Polysubstance abuse, on methadone Patient has a history of multiple substance use abuse, including methamphetamine, fentanyl, heroin. Patient is currently seeking care at a methadone center. Patient is on methadone 60 mg daily, [facility] dose [facility]. ? Restarted methadone 60 mg daily DVT Prophylaxis: N/A GI Prophylaxis: Famotidine Bowel: N/A Diet: NPO [place]: N/A Lines: Peripheral IV Antibiotics: Vancomycin and piperacillin/tazobactam [03/07--] Code Status: FULL Reason for Hospitalization: Left deltoid abscess and cellulitis Other Barriers to Discharge: Pending blood culture results Patient plan of care was discussed with the senior resident Dr. Duenas and attending physician Dr. Erika Skelton, PGY1 Attending Provider Attestation/Addendum I attest that I was physically present for the evaluation, physical examination, lab and imaging review of the patient with the residents. I discussed the case with the residents and agree with the findings and plans of care as documented above. Patient had a code green called in the afternoon when he tried to leave the hospital. There was also concern that he had suicidal ideation. Later on on further discussion, patient stated he was sad about relapse does not have any suicidal ideation. Underwent I&D yesterday with general surgery, 50 cc of pus was expressed and dressing was done. At bedside patient complained of pain on his shoulder but is controlled with analgesic regimen. Left arm is wrapped in bandage with mild soaking of the bandage, surrounding area appears clean. We will continue with IV antibiotics. We will continue with wound care. Noted to have positive hepatitis C serology, advised patient to follow-up with PCP for further outpatient workup. His methadone has been resumed. Awaiting culture results. Likely discharge in next 24 to 48 hours. Mona James MD
--- NOTE | 2025-03-08 09:35 | PD.SURPROG ---
Documentation for date of: 03/08/25 Subjective Subjective Brief History: 39M with HTN, HLD and history of injection drug use presenting to ER with left shoulder pain and swelling. Pt states he is on methadone but relapsed a few days ago and injected into his shoulder, since then has developed worsening pain and swelling. Pt was evaluated previously in our ER and recommended for transfer to another facility however he has been declined by both orthopedic and general surgery who determined that pt can adequately be treated by a general surgeon here. Pt additionally notes malaise and anorexia, has not eaten since yesterday PMH: HTN, HLD PShx: Denies Meds: Methadone (last taken yesterday), denies any other medications currently Allergies: NKDA Narrative: Pain controlled, remaining afebrile, WBC 12 from 16 Exam Vital Signs Temp Pulse Resp BP Pulse Ox O2 Del Method O2 Flow Rate 97.4 F 71 18 118/60 95 Room Air 3 03/08/25 08:00 03/08/25 09:11 03/08/25 08:00 03/08/25 09:11 03/08/25 08:00 03/08/25 08:00 03/07/25 20:36 Constitutional Constitutional: no acute distress Routine Respiratory Exam Respiratory: Present no resp distress Routine Extremities Exam Comments: LUE dressing c/d/i, improved swelling and ROM in hand Assessment & Plan Plan 39M presenting with left shoulder abscess in the deltoid muscle after injecting into the area s/p I&D 03/07, recovering well overall Daily packing changes OK for dc from my standpoint will follow up in 1 week PROCEDURES: Procedures Incision and drainage of right shoulder abscess
[2025-03-08] MEDS: VANCOMYCIN/WATER 1250 MG IVPB 250 ML 120 MG IV ×2 (10:17→21:06)
[2025-03-08] MEDS: KETOROLAC INJ 30 MG/ML VIAL 15 MG IVP ×2 (12:17→18:16)
--- NOTE | 2025-03-08 12:24 | PC.NURSE ---
pt walked out of room with IV's intact & holding vanco bag, he was stopped and came back to his room, he said he got mad and wanted to leave, he said the toradol works best for his pain and that he wants a nicotine patch, Dr James aware, he was advised on the benefits of continuing with antibiotic treatment
[2025-03-08] MEDS: NICOTINE PATCH 21 MG/24 HR PATCH.TD24 TOP (12:33)
--- NOTE | 2025-03-08 15:19 | PC.SS ---
Addendum entered by SEJAL Del Real 03/08/25 17:38: SS update: met with patient as FURNACE PROCESS SUPERVISOR was informed that the patient was attempting to leave once again AMA. FURNACE PROCESS SUPERVISOR met with patient in room, present was security, patient's mother and patient's cousin. Patient explained that he was not trying to leave, and had no intention to harm himself. Patient further explained he was upset that he overheard medical staff laugh and talk about him, which made him mad and upset. Patient is aware he is not ready for discharge and is agreeable to remain in the hospital until being medically cleared. The patient appeared to be alert and oriented to self, place and current situation. Patient continues to deny SI and HI. Attending Dr. James provided the patient with medical update. Per MICH Zamarripa, the patient did receive wound care today. Patient is agreeable and receptive to remain in the hospital and it was explained that a 1:1 sitter would be required due to our hospital policy. Patient has been receptive to resources and simply appears to be frustrated with the situation. Updated charge nurse Los and MICH Zamarripa regarding the patient's complaint and they are aware. SS to follow up with the patient tomorrow to check in on how he is doing. Addendum entered by SEJAL Del Real 03/08/25 16:04: FURNACE PROCESS SUPERVISOR met with the patient to provide AOD resources via community resource handout. Patient informs he is aligned with [facility] and AA Program and has family support. Patient denied SI and HI. Patient is agreeable to stay in the hospital until being cleared for discharge. Original Note: FURNACE PROCESS SUPERVISOR was informed by MICH Crandall that patient had made a comment regarding SI statement to medical staff and wanting to leave AMA. Spoke with resident Dr. Qureshi who clarified she met with the patient and patient denied the allegations. She informed the patient denied SI and HI during her contact with the patient. Per Dr. Qureshi the patient is frustrated and was wanting to leave AMA. Dr. Qureshi informs after meeting with the patient he is now agreeable to remain in the hospital until being medically cleared for discharge. Dr. Qureshi informs the patient can benefit from AOD resources however does not require a psychiatric evaluation at this time.
--- NOTE | 2025-03-08 15:20 | PD.RESEVENT ---
Documentation for date of: 03/08/25 Event Note Event Note: 03/08 at 14:54, the nurse for Mr. Olvera notified the primary team that the patient had thoughts of suicidal ideation because he feels like a failure for having relapsed into using heroin after not being able to get his methadone. Patient stated he has no family near. The nurse also stated that the patient really wanted to talk to Dr. Shanks [general surgery], but the nurse stated that she was not sure if Dr. Shanks would be available and offered contacting the primary medical team instead. The patient stated that he did not want to meet with the primary team, only with Dr. Shanks. The nurse then left and contacted the primary team. I and Dr. Sifuentes went to the patient's room immediately after the call. The patient denied thoughts of committing suicide, having a plan, or hurting him someone else. The patient denied all of these questions. The patient stated that he felt miserable for relapsing and caused his hospitalization, but stated that he did not feel like he wanted to hurt himself or commit suicide at all. Orientating questions were asked, and the patient was able to answer questions about his name, his year, his location, and why he is in the hospital right now. The patient was unable to properly answer what the date was. The patient was then asked what he would do if there was a fire right in front of him, to which the patient stated that he would put the fire out. It was then explained to the patient that all this questioning was because there was a concern that the patient was having thoughts of coming suicide. The patient became defensive once this was brought up. The patient stated that whoever said that is a liar and that he would never hurt himself like that . The patient clarified that he was just feeling sad about what happened to him, but he was not feeling suicidal. As a result of this, the patient stated that he feels like he wants to walk out right now . A long discussion was then had with the patient about how staff members here at [facility] are not trying to act against the patient's best interests. It was discussed that there may have just been a miscommunication between him and the nurse, and the nurse was acting as policy dictated and in the patient's best interest, resulting in the nurse calling the medicine team. It was made clear to the patient that the medicine team would prefer if he would stay at least 1 more day so that blood culture results can be obtained, which has a significant impact on antibiotic treatment choice and duration, however if he wished to leave AGAINST MEDICAL ADVICE, then we cannot keep him. We also made it clear that if he was in fact having suicidal ideation, homicidal ideations, and thoughts of self-harm, the staff at the hospital must abide by protocol and manage that accordingly. The patient eventually relented, stating that he would stay for now. It was also discussed during this conversation that relapsing is very common, but so long as the patient is aware and is willing to reflect, then progress can be made. The patient was awake and appropriately oriented, and the patient did not show signs of suicidal ideation, homicidal ideation, thoughts of self-harm. In addition, the patient showed intact decision-making ability at this time, demonstrating full capacity. After leaving the patient room, Dr. Sifuentes debriefed with the nurse for the patient and explained what had happened. vice president client services was reached out to and made aware. Juan Alberto Skelton, PGY1 - The patient's plan was discussed with attending Dr. Arjun Sifuentes MD PGY2 Internal Medicine
--- NOTE | 2025-03-08 16:51 | PD.RESEVENT ---
Documentation for date of: 03/08/25 I have discussed the case with supervising physician and automotive internet sales consultant physician involved in the care of patient. I personally saw and examined patient and discussed the assessment and plan with the entire medical team, including attending. I agree with assessment and plan as documented below Patient is pending blood cultures and currently not cleared, given need to send home with appropriate antibiotics. Patient once again denied SI or HI, cleared by social sciences chair. Jovana Sifuentes MD PGY-2 Internal Medicine Event Note Event Note: 03/08 at 16:25 Minerva Chakraborty was called for the patient as he tried to leave. The patient was stopped at the elevators and eventually returned to his room. Patient seemed to be agitated due to concerns of self-harm noted in earlier event note today. Dr. Sifuentes, PGY 2, Dr. Duenas, PGY 3, attending physician Dr. James, and myself went to the patient's room. Patient continued to be agitated throughout encounter. Patient reiterated desire to leave as he felt frustrated that there was concern that he might self-harm. financial services internship eventually came and went inside the room to try to de-escalate. The patient requested that only social sciences chair come inside to discuss, and wanted the door closed. Security staff remained inside per protocol. Medical team continued to discuss necessity of patient's stay throughout encounter. Minerva Chakraborty all cleared 16:55. Juan Alberto Skelton, PGY1
--- NOTE | 2025-03-08 17:19 | PC.CC ---
1645-BUN MACHINE OPERATOR made face to face with the patient. At the time of the contact the patient's mother, cousin, Beckie, MUNITIONS WORKER and Chemo(Security) were at bedside. BUN MACHINE OPERATOR explained role and reason for the contact. During the contact, the patient made eye contact, was able to engage and remained calmed. Patient was also cooperative and was able to be directed to remain at the end of the bed. Patient was able to provide the year, current president, identify mother and cousin. Patient reports that he did make a statement early that concerned the staff but he reports that he made it out of the event that led him to this visit. Patient admitted to using IV heroin that had led him to have an infection to his arm. Patient admits to being a poor decision on his behalf. Patient denies having mental health history, denies having previous psychiatric hospitalizations, denies previous suicidal attempts, denies having any self inflicted wounds (none were visible on upper front arms, upper chest and lower front legs), patient also denied wanting to harm himself at this time. Patient appeared to be emotional during the contact expressing he was not suicidal. Patient did admit to drug use since 2019; fentanyl and heroin. Social service did offer him community resource in an early contact and he was receptive to the resources. During the contact Dr. James explained to the patient the medical plan. Patient and family were also explained the reason a sitter would be placed outside his door. MICH Akhtar was made aware of the dissatisfaction disclosed by the patient and family with the staff. At the end of the contact with the patient all questions were answered. Patient was left with family- he was observed using his cell phone and about to have dinner.
--- NOTE | 2025-03-08 17:45 | PC.NURSE ---
1630 pt walking toward elevators with IV pole, staff escorted him back to his room, he says he's leaving and denies making a statement re: killing himself, oj//juan nurse at pt's door, discussion re: pt leaving AMA vs holding pt, pt agrees to stay for cont'd antibiotic treatment and pain mgt
--- NOTE | 2025-03-08 17:56 | PC.NURSE ---
At approximately 1433 science writer went in to give the pt his medication, upon entering the room the pt stated I want to kill myself , I further ask what is making the pt feel that way. Pt said he felt depress and that It's because I did it to myself . I stayed with pt until pt stated he was in pain. I said I will be back with your pain med. after steping out of room, the charge nurse and was notify.
[2025-03-08] MEDS: DIAZEPAM INJ 5 MG/ML VIAL 2 ML 2 MG IVP (18:50)
--- NOTE | 2025-03-08 19:20 | PC.NURSE ---
Addendum entered by Senthil Watkins RN 03/08/25 19:25: Dr. Rosa notified and he will put an order for a nicotine patch. Original Note: Patient requesting another nicotine patch because the previous nicotine patch that was placed at 1233 fell off during the patient's shower. Nect dose for a nicotine patch is 03/09/2025 @0900. RN will contact hospitalists for a 1x order.
[2025-03-08] MEDS: NICOTINE PATCH 14 MG/24 HR PATCH.TD24 TOP (19:33)
--- NOTE | 2025-03-08 22:23 | PC.NURSE ---
Addendum entered by Senthil Watkins RN 03/08/25 22:27: Dr. Rosa notified. Dr. Rosa said as of now the current pain regimen will stay as is. Dr. Rosa will notify the day team. Original Note: Patient requesting pain medications that are stronger. Patient states that the current pain regimen is not working. RN will notify hospitalists.
[2025-03-09] VITALS (8 sets, daily range): BP systolic 114–142; BP diastolic 64–89; PULSE 60–74; RESP 17–96; TEMP -12.8–36.4; O2SAT 98–100
[2025-03-09] MEDS: HYDROcodone/APAP 7.5/325 TABLET 1 TAB PO (00:16)
[2025-03-09] MEDS: KETOROLAC INJ 30 MG/ML VIAL 15 MG IVP ×2 (02:59→08:38)
[2025-03-09] MEDS: PIPER/TAZO 3.375 GM PREMIX 3.375 GM/50 ML BAG IV (05:40)
[2025-03-09 06:24] LABS: Basophils # (Auto) 0.0 Thou/mm3 (0.0-0.2); Basophils % (Auto) 0 % (0-2.5); Eosinophils # (Auto) 0.5 Thou/mm3 (0.0-0.5); Eosinophils % (Auto) 8 % (0-10); Hematocrit 36.8 % (41.0-53.0); Hemoglobin 12.3 g/dL (13.5-16.0); Immature Granulocytes Auto 0.05 Thou/mm3 (0.00-0.00); Lymphocytes # (Auto) 1.5 Thou/mm3 (1.0-4.8); Lymphocytes % (Auto) 21 % (10-50); Mean Corpuscular HGB Conc 33.4 g/dl (31.0-37.0); Mean Corpuscular Hemoglobin 29.7 pg (25.0-35.0); Mean Corpuscular Volume 89 fL (80-100); Monocytes # (Auto) 0.5 Thou/mm3 (0.0-0.8); Monocytes % (Auto) 7 % (0-12); Neutrophils # (Auto) 4.5 Thou/mm3 (1.8-7.7); Neutrophils % (Auto) 64 % (37-80); Nucleated Red Blood Cell # 0.00 Thou/mm3 (0.00-0.00); Nucleated Red Blood Cell % 0 /100 WBC (0); Platelet Count 369 Thou/mm3 (140-440); RDW Standard Deviation 43.1 fL (35.1-43.9); Red Blood Count 4.14 Miln/mm3 (4.50-5.90); White Blood Count 7.0 Thou/mm3 (3.8-10.6)
[2025-03-09 07:11] LABS: Alanine Aminotransferase 85 U/L (10-49); Albumin, Serum 3.1 gm/dL (3.5-5.0); Albumin/Globulin Ratio 1.1 (1.2-2.2); Alkaline Phosphatase 115 U/L (46-116); Anion Gap 9 (7-16); Aspartate Amino Transferase 68 U/L (0-34); BUN/Creatinine Ratio 9 Ratio (12-20); Bilirubin,Total 0.3 mg/dL (0.3-1.2); Blood Urea Nitrogen 7 mg/dL (9-23); Calcium 8.2 mg/dL (8.3-10.6); Calcium (Corrected) 8.9 mg/dL (8.5-10.1); Carbon Dioxide 27.4 mMol/L (20.0-31.0); Cardiac Risk Estimate 4.9 RATIO (4.0-6.7); Chloride 104 mMol/L (98-107); Cholesterol 94 mg/dL (132-200); Creatinine (Component) 0.8 mg/dL (0.6-1.3); Estimated Creatinine Clearance 119.1 mL/min (>60); Globulin 2.7 gm/dL (2.3-3.5); Glucose 101 mg/dL (74-106); HDL Cholesterol 19 mg/dL (40-60); LDL Cholesterol,Calculated 52 mg/dL (0-130); Magnesium 2.0 mg/dL (1.6-2.6); Osmolality,Calculated 277 (275-295); Phosphorous 4.5 mg/dL (2.4-5.1); Potassium 4.0 mMol/L (3.4-5.1); Sodium 140 mMol/L (136-145); Total Protein 5.8 gm/dL (5.7-8.2); Triglycerides 113 mg/dL (30-150); eGFR > 60 See Note
--- NOTE | 2025-03-09 07:18 | PC.NURSE ---
Pt appears in no distress, resting quietly with eyes closed at time of handoff. Visitor at bedside and sitter in place.
[2025-03-09] MEDS: LOSARTAN POTASSIUM 25 MG TABLET 50 MG PO (08:37)
[2025-03-09] MEDS: METHADONE HCL 10 MG TABLET 60 MG PO (08:37)
[2025-03-09] MEDS: FAMOTIDINE INJ 10 MG/ML VIAL 2 ML 20 MG IVP (08:39)
[2025-03-09] MEDS: NICOTINE PATCH 21 MG/24 HR PATCH.TD24 TOP (08:47)
[2025-03-09 09:12] LABS: Vancomycin,Trough 6.9 mcg/mL (5.0-10.0)
--- NOTE | 2025-03-09 10:03 | PC.SS ---
SS follow up: attempted to meet with patient to check how he is doing. Patient currently asleep. 1:1 sitter present. Per sitter the patient has been calm, no issues reported.
[2025-03-09] MEDS: VANCOMYCIN/WATER 1GM IVPB 200 ML IV (10:16)
--- NOTE | 2025-03-09 10:56 | PC.SS ---
Addendum entered by Neelam Bello 03/09/25 11:48: Late note 03-08-25: SS met with pt who states he goes to [facility] everyday. Pt also states he attends AA meetings on Fridays. Pt had tox screen positive for Opiates, Fentanyl, Meth, and Marijuana. SS offered pt community resources and pt was receptive. 03-09-25: SS provided pt with [facility] for drug/alcohol resources. Original Note: Follow up note: On IV antibiotic. Cultures are pending. Pt will return home upon d.c.
--- NOTE | 2025-03-09 12:38 | PC.NURSE ---
Pt discharged, awaiting family for transportation
--- NOTE | 2025-03-09 14:51 | ESDS_ITS ---
<Statement entered by Lupe Yoo MD - 03/09/25 17:18> Patient was seen and examined by me personally. I have directly supervised and reviewed documentation by the team resident and agree with its findings with the following exceptions/and additional findings. ------- Plan of discharge was discussed with the attending, Dr. Erika Yoo, PGY-2 Planned Discharge Date 03/09/25 DS: Providers Provider Date of admission: 03/07/25 11:03 Primary care physician: Cheri Rock([facility])HENRY Admitting Provider: Mona James MD Attending Provider on Admission: Mona James MD Consults: 03/07/25 11:15 Consult to General Surgery Routine Comment: Left arm abscess Consulting Provider: Marisel Shanks 03/07/25 18:46 Referral Smoking Cessation Counseling Routine Comment: Smoking Cessation Education Needed Health Equity Referral - Transportation Routine Comment: Positive screening for transportation needs. 03/08/25 10:46 Referral OP Wound Healing Dept Routine Comment: Attending Provider on DC: Mona James MD Discharging Provider: Mona James MD Anticipated date of discharge: 03/09/25 DS: Diagnosis Problem List Completed Was Problem List Reviewed/Reconciled?: Yes Hospital Course Hospital Course Hospital course: Reason for Hospitalization: Left upper extremity cellulitis with deltoid abscess Summary: Mr. Olvera is a 39-year-old male with a known history of IV drug abuse, since 2019, was admitted to [facility] on 03/07/25 for cellulitis of left arm with abscess and deltoid muscle. The patient initially sought the ED on Tuesday 03/06 due to pain and swelling of his arm that started on 03/03. On 03/03, the patient tried to go to his methadone clinic, however they were closed early. As result, the patient decided to inject heroin into his left arm. Over the course of the few days, the patient's left arm continued to , worsening in pain, and become more red. Eventually the erythema would encompass his left arm from shoulder to elbow. Extensive imaging showed a pocket of pus present in his left deltoid muscle. The patient was given doxycycline, piperacillin, and vancomycin one- time doses in the ED. There was initial attempt to try and transfer the patient to an outside facility due to concerns for bacterial involvement of the shoulder and possible compartment syndrome. General surgery and orthopedic surgery highly recommended transfer to higher level of care. However outside facilities rejected the transfer per documentation. The patient was admitted with plans for I&D by general surgery due to ruled out compartment syndrome given strong radial pulse palpated, compressibility, and sustained range of motion at elbow and wrist. The patient had already been improving with the antibiotics given in the ED, so the patient was started on IV vancomycin and Zosyn after being admitted to medical floor. Hepatitis panel was positive for Hepatitis C, which is a new diagnosis for the patient. General surgery performed I&D on 03/07 in the evening. Patient was discussed with social media senior associate due to concerns of patient self-harm, but was cleared by social media senior associate. On 03/09, final results of blood cultures resulted as no growth after 48 hours. The patient was discharged home on Keflex 500 mg 3 times daily for 10 days to complete his course of antibiotics. Patient was advised to discontinue IV drug abuse, smoking cessation, and seek outpatient follow-up for hepatitis C. Patient vitals were stable and patient able to ambulate without any assistance, cellulitis improved. Patient medical stable for discharge from inpatient care at [facility]. Imaging: Elbow x-ray 03/06/2025: No opaque foreign bodies. Humerus x-ray 03/06/2025: No opaque foreign body. Venous Doppler study 03/06/2025: Negative for DVT, partial cystic complex mass and soft tissue left upper arm 7.2 x 3.2 x 3.4 cm, consider abscess Humerus CT 03/06/2025: Abscess in deltoid muscle 3 x 1 x 2 0.2 x 8.4 cm, recommend surgical consultation Discharge Recomendations: ? Continue Keflex 500 mg 3 times daily for 10 days to complete course of antibiotics ? Follow-up with outpatient PCP for management of hepatitis C and referral to ID for further treatment ? Follow-up with wound care outpatient for management of left arm surgical wound ? Cessation of heroin, fentanyl, methamphetamine use ? Cessation of IV drug use ? Return to [facility] ED if worsening of symptoms such as return of cellulitis, extensive worsening of pus in wound, and/or worsening of right upper extremity edema If you don't have a PCP, you can make an appointment at the [facility]: [address] [place] [address] Hospital Diagnoses: #Cellulitis of left arm with deltoid abscess #IV drug abuse #Hepatitis C infection #Hypertension #Hyperlipidemia #Polysubstance abuse on methadone Juan Alberto Skelton, PGY-1 Time spent discussing smoking cessation with patient: more than 10 minutes Status at Discharge Functional status at discharge: independent ambulation Overall status at discharge: patient is back to baseline Time Spent with Patient Time attestation: Total time spent providing and/or coordinating discharge services: 34 min Time spent: Greater than 30 minutes Exam Vital Signs Temp Pulse Resp BP Pulse Ox O2 Del Method O2 Flow Rate 97.5 F 69 18 142/89 H 98 Room Air 3 03/09/25 12:00 03/09/25 12:00 03/09/25 12:00 03/09/25 12:00 03/09/25 12:03/09/25 12:03/09/25 12:00 Narrative Exam Physical Exam: General: Alert, no acute distress. Skin: Warm, dry, intact, no obvious rash. Head: Normocephalic, atraumatic. Eye: Normal conjunctiva, PERRL. Cardiovascular: Regular rate and rhythm, no murmur, +S1/S2. Respiratory: Lungs are clear to auscultation, respirations unlabored, no crackles, no wheezing. Gastrointestinal: Soft, nontender, non-distended. No guarding or rebound tenderness. Extremities: Right arm swollen without erythema, no cyanosis, no clubbing. 2+ radial pulse bilaterally, 2+ pedal pulse bilaterally. Longitudinal incision on left arm around deltoid region without extensive bleeding or pus. Neuro: No focal deficits observed. Conversant, moving all extremities. No overt cerebellar signs/incoordination. Psychiatric: Cooperative, appropriate affect. Discharge Plan Plan Patient Disposition: HOME (Self Care) Patient condition on transfer: Stable Care Plan Goals: Follow up with general surgeon Dr Shanks, Follow up with wound care outpatient Take meds as prescribed below, Stop Drug use, stop smoking and alcohol use. Follow up with primary care provider in 1 week. Follow-up in [facility] in 1 to 2 weeks if you don't have a primary care provider. Call [phone] to make an appointment Address: [facility], [address], [address], [place], [address] Return to ED if symptoms return or worsen. Prescriptions/Referrals Prescriptions/Med Rec: New nicotine 21 mg/24 hr patch 24 hour 21 mg topical QDAY 28 Days Qty: 28 0RF cephalexin 500 mg tablet 500 mg PO TID 10 Days Qty: 30 0RF Continued losartan 50 mg Tablet 50 mg PO QDAY amlodipine 5 mg Tablet 5 mg PO QDAY methadone 10 mg/mL concentrate 60 mg PO QDAY Discontinued atorvastatin [Lipitor] 10 mg Tablet 10 mg PO QDAY [facility]: [facility] [Primary Care Provider] - Marisel Shanks MD [Physician] - (You will receive a phone call to confirm a follow-up appt with me next week) Patient/Caregiver Discharge Instructions Discharge Activity: activity as tolerated Education Materials: Discharge Instructions for Cellulitis, Preventing Surgical Site Infections, ED Abscess Antibiotic ..., ED Abscess, Incision And Drainage Print Language: French Stand Alone Forms: Sayda Award Info., Patient Portal Info Letter Discharge Order Discharge Orders: Discharge (Routine); Ordered 03/09/25 Ordered By: Mike Schwab Quality Discharge Quality Measures none MD Attestestation MD Attestation I attest that I was physically present for the evaluation, physical examination, lab and imaging review of the patient with the residents. I discussed the case with the residents and agree with the findings and plans of care as documented above. Mona James MD
== END 2025-03-09 12:48 | disposition home or self-care (01) | DRG 364 ==
LOC: SERX 03-07 10:44 → SERHOLD 03-07 11:21 → S3SX 03-07 18:26
PROVIDERS: Nurse Practitioner Primary Care; Student in an Organized Health Care Education/Training Program; Surgery; Admitting Provider Student in an Organized Health Care Education/Training Program; Emergency Provider Emergency Medicine; PCP Nurse Practitioner Family; Visit Provider Student in an Organized Health Care Education/Training Program
PROC: 0J9D0ZZ Drainage of Right Upper Arm Subcutaneous Tissue and Fascia, Open Approach (ICD-10-PCS; principal; 2025-03-07 14:30)
DX: L02.413 Cutaneous abscess of right upper limb (principal); L02.414 Cutaneous abscess of left upper limb; I10 Essential (primary) hypertension; E87.1 Hypo-osmolality and hyponatremia; F17.200 Nicotine dependence, unspecified, uncomplicated; E78.5 Hyperlipidemia, unspecified; F19.10 Other psychoactive substance abuse, uncomplicated; B19.20 Unspecified viral hepatitis C without hepatic coma; L03.114 Cellulitis of left upper limb; L29.9 Pruritus, unspecified; T50.996A Underdosing of other drugs, medicaments and biological substances, initial encounter; Z91.148 Patient's other noncompliance with medication regimen for other reason
CPT/HCPCS: 36415; 73060; 73080; 73701; 80048; 80053; 80061; 80074; 80202; 80307; 83605; 83735; 84100; 84145; 85025; 85610; 85652; 85730; 86140; 86703; 87040; 87070; 87075; 87081; 87205; 90715; 93971; 96361; 96365; 96366; 96375; 96376; 99284; A4217; A4649; J1171; J1885; J2250; J2270; J2543; J2704; J3010; J3360; J3372; J3373; J3375; J3475; J3490; J7030; J7050; Q9967; A9270

== ENCOUNTER 2025-03-15 10:12 | Outpatient (AMB) | payer MEDICAID, SELFPAY ==
[2025-03-15 10:20] VITALS: BP 138/80; PULSE 68; RESP 18; TEMP 36.4; O2SAT 96; BMI 27.3
--- NOTE | 2025-03-15 10:20 | GSCOFFNT_ITS ---
Vital Signs - Gen Srg Clinic 03/15/25 10:20 Height 1.65 m Height Method Measured Weight 74.588 kg Weight Measurement Method Standing Scale BMI 27.3 BP 138/80 H Blood Pressure Source Automatic Cuff Blood Pressure Location Right Upper Arm Position Sitting Respiration 18 Pulse 68 Pulse Source Monitor Temp 97.5 F Temp Source Temporal Artery Scan Pulse Oximetry (%) 96 Oxygen Delivery Method Room Air Med/Allergies Allergies & Medications Allergies No Known Allergies Allergy (Verified 03/15/25 10:21) Medication Reconciliation amlodipine 5 mg tablet 5 mg PO QDAY 02/04/24 [History Confirmed 03/15/25] losartan 50 mg tablet 50 mg PO QDAY 02/04/24 [History Confirmed 03/15/25] methadone 10 mg/mL oral concentrate 60 mg PO QDAY 03/07/25 [History Confirmed 03/15/25] cephalexin 500 mg tablet 500 mg PO TID 10 days #30 tabs 03/09/25 [Rx Confirmed 03/15/25] nicotine 21 mg/24 hr daily transdermal patch 21 mg topical QDAY 28 days #28 ea 03/09/25 [Rx Confirmed 03/15/25] MA Intake Visit Data Collection New Patient or Established: New Patient (never been to [facility]) Seen by Clinical Staff ONLY (RN/MA): No Pain Present Currently: No Customer Development Manager Required: No PCP or OBGYN visit in last 3 months: Yes Hx Now: No Do You Feel Safe at Home: Yes Authorities Contacted: N/A Smoking Status Smoking Status: Light (< 1 pack/day) Cessation Counseling Provided: RICKY was advised that quitting smoking is the single most important factor to protect the health of themselves and their family. Discussed the benefits of quitting smoking with patient. Encouraged patient to quit smoking and provided Cessation assistance materials and resources. Tobacco Use: Cigarette Years smoked: 5 Are you interested in quitting?: No Would you like additional Smoking Cessation Counseling?: No Immunization / Flu Flu Vaccine in the Last 12 Months: No Flu Vaccine Exclusion Criteria: Refused by Patient Past Medical History Past Medical History NEUROLOGIC: Negative Neurological Disorders or Seizures CARDIAC: Positive Hypercholesterolemia, Hypertension and Varicose Veins; Negative Cardiac Disorders or Congestive Heart Failure RESPIRATORY: Negative Chronic Obstructive Pulmonary Disease (COPD) or Asthma GASTROINTESTINAL: Negative Gastrointestinal Disorders or Hepatitis GENITOURINARY: Positive Genitourinary Disorders and Inguinal Hernia; Negative Renal Disease MUSCULOSKELETAL: Positive Fractures ENDOCRINE: Negative Endocrine Disorders, Diabetes Mellitus Type 1 or Diabetes Mellitus Type 2 HEMATOLOGIC: Negative Blood Disorders or Sickle Cell Disease PSYCHO/SOCIAL: Positive Recreational Drug Use and Anxiety OTHER HISTORY: Positive Chicken Pox; Negative Hospitalization, Autoimmune Disease, Shingles, Blood Transfusions, Blood Transfusion Reaction, Anesthesia Reactions or Cancer Family History FAMILY HISTORY: Positive Family Cardiac Disorders, Family Cancer and Family Surgery; Negative Family Psychiatric Problems, Family Respiratory Disorders, Family Gastrointestinal Problems or Family Anesthesia Reaction Social History SMOKING STATUS: Smoking status: Light (< 1 pack/day) SECOND HAND EXPOSURE: second hand exposure: Yes ALCOHOL: Alcohol Intake: Former ALCOHOL FREQUENCY: Alcohol Intake Frequency: holidays/special occasions only HOUSING: Housing: House LIVES WITH: Lives With: Spouse HPI HPI Narrative 39M who presented with left shoulder abscess s/p I&D 03/07 here for planned follow up. Pt has been doing daily packing changes with the help of his family and reports drainage has decreased. His pain is controlled and he has no new complaints, is scheduled to follow up at wound healing Mon 03/19 ROS Review of Systems Systems Reviewed: All systems reviewed, normal except as documented Objective/Exam General General Appearance: alert, cooperative and well groomed Resp Respiratory exam: Absent respiratory distress Extremities Extremities exam: Present other (left upper extremity abscess cavity with beefy red granulation tissue at base, no fluctuance or erythema, packing replaced) Results Blood cx neg Assessment & Plan Diagnosis / Problem List (1) Abscess of deltoid region: Status: Acute Assessment & Plan: 39M s/p I&D of left shoulder abscess 03/07, recovering well Plan: Continue daily packing changes F/u on 03/26 Office Procedures GNS Level of Care Nursing/Assessment Patient Status: Initial/New Patient Nursing Assessment/Reassesment: Medication Reconciliation, Update PMH in EMR and Vital Signs Coordination of Care: Complex Care and Chronic Disease 1-5, Consent,records obtained, informed consent, Education Simp Pt/Fam, Results/Orders obtained and Staff clarify orders New Patient Charge New Patient Point Assignment: 1089 New Patient Point Charge: INFORMATION SPECIALIST Level 3 ([id number]) Patient Portal Questionaires Social History Living Situation History Housing: House Tobacco History Smoking Status: Light (< 1 pack/day) Second Hand Smoke Exposure: Yes Alcohol History Alcohol Intake: Former Alcohol Intake Frequency: holidays/special occasions only Domestic Abuse History Do You Feel Safe at Home: Yes Review of Systems Report any current symptoms Only answer those that you have currently: Past Medical History Past Medical History Have you ever been diagnosed with any of the following: Neurological Problems Seizures: No Cardiology Problems Hypercholesterolemia: Yes Congestive Heart Failure: No Hypertension: Yes Varicose Veins: Yes Respiratory Problems Chronic Obstructive Pulmonary Disease (COPD): No Asthma: No Stomache/Intestinal Problems Hepatitis: No Genital/Urinary Problems Renal Disease: No Inguinal Hernia: Yes Musculoskeletal Problems Fractures: Yes Endocrine Problems Diabetes Mellitus Type 1: No Diabetes Mellitus Type 2: No Blood Problems Sickle Cell Disease: No Psychologic Problems Recreational Drug Use: Yes Anxiety: Yes Other Problems Hospitalization: No Autoimmune Disease: No Shingles: No Blood Transfusions: No Blood Transfusion Reaction: No Anesthesia Reactions: No Chicken Pox: Yes Cancer: No
== END 2025-03-15 10:38 | disposition home or self-care (01) ==
LOC: HODSRG 10:12
PROVIDERS: PCP Nurse Practitioner Family; Referring Provider Nurse Practitioner Family; Supervising Provider Surgery; Visit Provider Surgery
DX: Z48.817 Encounter for surgical aftercare following surgery on the skin and subcutaneous tissue (principal)
CPT/HCPCS: 99203; G0463

== ENCOUNTER 2025-03-26 10:37 | Outpatient (AMB) | payer MEDICAID, SELFPAY ==
--- NOTE | 2025-03-26 10:45 | GSCOFFNT_ITS ---
Vital Signs - [facility]rg Clinic 03/26/25 10:49 Height 1.65 m Height Method Measured Weight 75.466 kg Weight Measurement Method Standing Scale BMI 27.7 BP 156/102 H Blood Pressure Source Automatic Cuff Blood Pressure Location Right Upper Arm Position Sitting Respiration 18 Pulse 58 L Pulse Source Monitor Temp 97.5 F Temp Source Temporal Artery Scan Pulse Oximetry (%) 98 Oxygen Delivery Method Room Air Med/Allergies Allergies & Medications Allergies No Known Allergies Allergy (Verified 03/26/25 10:52) Medication Reconciliation amlodipine 5 mg tablet 5 mg PO QDAY 02/04/24 [History Confirmed 03/26/25] losartan 50 mg tablet 50 mg PO QDAY 02/04/24 [History Confirmed 03/26/25] methadone 10 mg/mL oral concentrate 60 mg PO QDAY 03/07/25 [History Confirmed 03/26/25] nicotine 21 mg/24 hr daily transdermal patch 21 mg topical QDAY 28 days #28 ea 03/09/25 [Rx Confirmed 03/26/25] MA Intake Visit Data Collection New Patient or Established: Established Patient (seen at [facility] within 3 years) Seen by Clinical Staff ONLY (RN/MA): No Reason for Visit:: 3 WEEK F/U Pain Present Currently: No Pain Scale Used: Cristobal-Wooten/Numerical Mortgage Loan Reviewer Required: No PCP or OBGYN visit in last 3 months: Yes Hx Now: No Do You Feel Safe at Home: Yes Authorities Contacted: N/A Smoking Status Smoking Status: Light (< 1 pack/day) Cessation Counseling Provided: SONNER was advised that quitting smoking is the single most important factor to protect the health of themselves and their family. Discussed the benefits of quitting smoking with patient. Encouraged patient to quit smoking and provided Cessation assistance materials and resources. Tobacco Use: Cigarette Years smoked: 10 Are you interested in quitting?: No Immunization / Flu Flu Vaccine in the Last 12 Months: No Flu Vaccine Exclusion Criteria: Refused by Patient Past Medical History Past Medical History NEUROLOGIC: Negative Neurological Disorders or Seizures CARDIAC: Positive Hypercholesterolemia, Hypertension and Varicose Veins; Negative Cardiac Disorders or Congestive Heart Failure RESPIRATORY: Negative Chronic Obstructive Pulmonary Disease (COPD) or Asthma GASTROINTESTINAL: Negative Gastrointestinal Disorders or Hepatitis GENITOURINARY: Positive Genitourinary Disorders and Inguinal Hernia; Negative Renal Disease MUSCULOSKELETAL: Positive Fractures ENDOCRINE: Negative Endocrine Disorders, Diabetes Mellitus Type 1 or Diabetes Mellitus Type 2 HEMATOLOGIC: Negative Blood Disorders or Sickle Cell Disease PSYCHO/SOCIAL: Positive Recreational Drug Use and Anxiety OTHER HISTORY: Positive Chicken Pox; Negative Hospitalization, Autoimmune Disease, Shingles, Blood Transfusions, Blood Transfusion Reaction, Anesthesia Reactions or Cancer Family History FAMILY HISTORY: Positive Family Cardiac Disorders, Family Cancer and Family Surgery; Negative Family Psychiatric Problems, Family Respiratory Disorders, Family Gastrointestinal Problems or Family Anesthesia Reaction Social History SMOKING STATUS: Smoking status: Light (< 1 pack/day) SECOND HAND EXPOSURE: second hand exposure: Yes ALCOHOL: Alcohol Intake: Former ALCOHOL FREQUENCY: Alcohol Intake Frequency: holidays/special occasions only HOUSING: Housing: House LIVES WITH: Lives With: Spouse HPI HPI Narrative 39M who presented with left shoulder abscess s/p I&D 03/07 here for planned follow up. Pt has continued daily packing changes with the help of his family and he is having minimal drainage. His pain is well-controlled and he has no new complaints ROS Review of Systems Systems Reviewed: All systems reviewed, normal except as documented Objective/Exam General General Appearance: alert, cooperative and well groomed Resp Respiratory exam: Absent respiratory distress Extremities Extremities exam: Present other (Left upper arm abscess cavity with beefy red granulation tissue at base, there is some induration laterally and a scant amount of pus is expressed when I press on this so I encouraged patient to continue packing) Assessment & Plan Diagnosis / Problem List (1) Abscess of deltoid region: Status: Acute Assessment & Plan: 39M who presented with left shoulder abscess s/p I&D 03/07 here for planned follow up, recovering well Plan: F/u next week Office Procedures GNS Level of Care Nursing/Assessment Patient Status: Established Patient Nursing Assessment/Reassesment: Medication Reconciliation, Update PMH in EMR and Vital Signs Coordination of Care: Complex Care and Chronic Disease 1-5, Consent,records obtained, informed consent, Education Simp Pt/Fam, Results/Orders obtained and Staff clarify orders Established Patient Charge Established Patient Point Assignment: 90 Established Patient Point Charge: EP Level 3 (80-115) Patient Portal Questionaires Social History Living Situation History Housing: House Tobacco History Smoking Status: Light (< 1 pack/day) Second Hand Smoke Exposure: Yes Alcohol History Alcohol Intake: Former Alcohol Intake Frequency: holidays/special occasions only Domestic Abuse History Do You Feel Safe at Home: Yes Review of Systems Report any current symptoms Only answer those that you have currently: Past Medical History Past Medical History Have you ever been diagnosed with any of the following: Neurological Problems Seizures: No Cardiology Problems Hypercholesterolemia: Yes Congestive Heart Failure: No Hypertension: Yes Varicose Veins: Yes Respiratory Problems Chronic Obstructive Pulmonary Disease (COPD): No Asthma: No Stomache/Intestinal Problems Hepatitis: No Genital/Urinary Problems Renal Disease: No Inguinal Hernia: Yes Musculoskeletal Problems Fractures: Yes Endocrine Problems Diabetes Mellitus Type 1: No Diabetes Mellitus Type 2: No Blood Problems Sickle Cell Disease: No Psychologic Problems Recreational Drug Use: Yes Anxiety: Yes Other Problems Hospitalization: No Autoimmune Disease: No Shingles: No Blood Transfusions: No Blood Transfusion Reaction: No Anesthesia Reactions: No Chicken Pox: Yes Cancer: No
[2025-03-26 10:49] VITALS: BP 156/102; PULSE 58; RESP 18; TEMP 36.4; O2SAT 98; BMI 27.7
== END 2025-03-26 11:09 | disposition home or self-care (01) ==
LOC: HODSRG 10:37
PROVIDERS: PCP Nurse Practitioner Family; Referring Provider Nurse Practitioner Family; Supervising Provider Surgery; Visit Provider Surgery
DX: Z48.817 Encounter for surgical aftercare following surgery on the skin and subcutaneous tissue (principal); F17.210 Nicotine dependence, cigarettes, uncomplicated; I10 Essential (primary) hypertension; E78.00 Pure hypercholesterolemia, unspecified
CPT/HCPCS: 99213; G0463

== ENCOUNTER 2025-04-12 10:13 | Outpatient (AMB) | payer MEDICAID, SELFPAY ==
[2025-04-12 10:34] VITALS: BP 147/91; PULSE 56; RESP 19; TEMP 36.2; O2SAT 99; BMI 29.3
--- NOTE | 2025-04-12 10:34 | GSCOFFNT_ITS ---
Vital Signs - [facility] 04/12/25 10:34 Height 1.65 m Height Method Stated Weight 79.974 kg Weight Measurement Method Standing Scale BMI 29.3 BP 147/91 H Blood Pressure Source Automatic Cuff Blood Pressure Location Left Upper Arm Position Sitting Respiration 19 Pulse 56 L Pulse Source Monitor Temp 97.1 F Temp Source Temporal Artery Scan Pulse Oximetry (%) 99 Oxygen Delivery Method Room Air Med/Allergies Allergies & Medications Allergies No Known Allergies Allergy (Verified 04/12/25 10:35) Medication Reconciliation amlodipine 5 mg tablet 5 mg PO QDAY 02/04/24 [History Confirmed 04/12/25] losartan 50 mg tablet 50 mg PO QDAY 02/04/24 [History Confirmed 04/12/25] methadone 10 mg/mL oral concentrate 60 mg PO QDAY 03/07/25 [History Confirmed 04/12/25] MA Intake Visit Data Collection New Patient or Established: Established Patient (seen at [facility] within 3 years) Seen by Clinical Staff ONLY (RN/MA): No Reason for Visit:: FOLLOW UP Pain Present Currently: No PCP or OBGYN visit in last 3 months: Yes Smoking Status Smoking Status: Light (< 1 pack/day) Cessation Counseling Provided: RICKY was advised that quitting smoking is the single most important factor to protect the health of themselves and their family. Discussed the benefits of quitting smoking with patient. Encouraged patient to quit smoking and provided Cessation assistance materials and resources. Tobacco Use: Cigarette Years smoked: 5 Are you interested in quitting?: No Immunization / Flu Flu Vaccine in the Last 12 Months: No Flu Vaccine Exclusion Criteria: No Exclusion Criteria Past Medical History Past Medical History NEUROLOGIC: Negative Neurological Disorders or Seizures CARDIAC: Positive Hypercholesterolemia, Hypertension and Varicose Veins; Negative Cardiac Disorders or Congestive Heart Failure RESPIRATORY: Negative Chronic Obstructive Pulmonary Disease (COPD) or Asthma GASTROINTESTINAL: Negative Gastrointestinal Disorders or Hepatitis GENITOURINARY: Positive Genitourinary Disorders and Inguinal Hernia; Negative Renal Disease MUSCULOSKELETAL: Positive Fractures ENDOCRINE: Negative Endocrine Disorders, Diabetes Mellitus Type 1 or Diabetes Mellitus Type 2 HEMATOLOGIC: Negative Blood Disorders or Sickle Cell Disease PSYCHO/SOCIAL: Positive Recreational Drug Use and Anxiety OTHER HISTORY: Positive Chicken Pox; Negative Hospitalization, Autoimmune Disease, Shingles, Blood Transfusions, Blood Transfusion Reaction, Anesthesia Reactions or Cancer Family History FAMILY HISTORY: Positive Family Cardiac Disorders, Family Cancer and Family Surgery; Negative Family Psychiatric Problems, Family Respiratory Disorders, Family Gastrointestinal Problems or Family Anesthesia Reaction Social History SMOKING STATUS: Smoking status: Light (< 1 pack/day) SECOND HAND EXPOSURE: second hand exposure: Yes ALCOHOL: Alcohol Intake: Former ALCOHOL FREQUENCY: Alcohol Intake Frequency: holidays/special occasions only HOUSING: Housing: House LIVES WITH: Lives With: Spouse HPI HPI Narrative 39M who presented with left shoulder abscess s/p I&D 03/07 here for planned follow up. Pt report sfeeling well overall, he is no longer needing the pack the wound and has no pain or any other concerns ROS Review of Systems Systems Reviewed: All systems reviewed, normal except as documented Objective/Exam General General Appearance: alert, cooperative and well groomed Resp Respiratory exam: Absent respiratory distress Extremities Extremities exam: Present other (left shoulder abscess cavity well-healed with no erythema, no fluctuance or tenderness) Assessment & Plan Diagnosis / Problem List (1) Abscess of deltoid region: Status: Acute Assessment & Plan: 39M who presented with left shoulder abscess s/p I&D 03/07 here for planned follow up, recovering well Plan: Follow up as needed Office Procedures GNS Level of Care Nursing/Assessment Patient Status: Established Patient Nursing Assessment/Reassesment: Medication Reconciliation, Update PMH in EMR and Vital Signs Coordination of Care: Complex Care and Chronic Disease 1-5, Consent,records obtained, informed consent, Education Simp Pt/Fam, Results/Orders obtained and Staff clarify orders Established Patient Charge Established Patient Point Assignment: 90 Established Patient Point Charge: EP Level 3 (80-115) Patient Portal Questionaires Social History Living Situation History Housing: House Tobacco History Smoking Status: Light (< 1 pack/day) Second Hand Smoke Exposure: Yes Alcohol History Alcohol Intake: Former Alcohol Intake Frequency: holidays/special occasions only Review of Systems Report any current symptoms Only answer those that you have currently: Past Medical History Past Medical History Have you ever been diagnosed with any of the following: Neurological Problems Seizures: No Cardiology Problems Hypercholesterolemia: Yes Congestive Heart Failure: No Hypertension: Yes Varicose Veins: Yes Respiratory Problems Chronic Obstructive Pulmonary Disease (COPD): No Asthma: No Stomache/Intestinal Problems Hepatitis: No Genital/Urinary Problems Renal Disease: No Inguinal Hernia: Yes Musculoskeletal Problems Fractures: Yes Endocrine Problems Diabetes Mellitus Type 1: No Diabetes Mellitus Type 2: No Blood Problems Sickle Cell Disease: No Psychologic Problems Recreational Drug Use: Yes Anxiety: Yes Other Problems Hospitalization: No Autoimmune Disease: No Shingles: No Blood Transfusions: No Blood Transfusion Reaction: No Anesthesia Reactions: No Chicken Pox: Yes Cancer: No
== END 2025-04-12 10:47 | disposition home or self-care (01) ==
LOC: HODSRG 10:13
PROVIDERS: PCP Nurse Practitioner Family; Referring Provider Nurse Practitioner Family; Supervising Provider Surgery; Visit Provider Surgery
DX: Z48.817 Encounter for surgical aftercare following surgery on the skin and subcutaneous tissue (principal); F17.210 Nicotine dependence, cigarettes, uncomplicated; I10 Essential (primary) hypertension; E78.00 Pure hypercholesterolemia, unspecified
CPT/HCPCS: 99213; G0463